=== PATIENT | male | born 1955 | race Two or more races ===

== ENCOUNTER 2024-06-02 16:12 | Inpatient (IN) | payer MEDICARE, MEDICAID, SELFPAY ==
[2024-06-02 16:37] VITALS: BP 151/87; PULSE 99; RESP 18; TEMP 37.2; O2SAT 95; BMI 30.2
--- NOTE | 2024-06-02 16:44 | XR_ITS ---
Examination: CT brain head without contrast. 2-D sagittal coronal reconstructions Date and time of exam:June 02, 2024, 1705 hours Comparison February 09, 2017 INDICATIONS: Onset headache today CTDI: vol (mGy):56.2 DLP: (mGycm):1182 Technique: Multiple CT axial sections of the brain have been obtained, 5 mm slice thickness. Contrast has not been administered. 2-D sagittal, coronal reconstructions have been obtained Low dose protocols were performed. One or more of the following dose reduction techniques were used; automated exposure control, adjustment of the mA and/or KV according to patient size, use of iterative reconstruction technique. Findings: No significant ventricular enlargement. 15 mm subtle low density in the left parietal lobe, axial image 20 Intra-axial or extra-axial hemorrhage density is not seen. No mass effect or midline shift Basal cisterns are not remarkable. Fourth ventricle is midline. Cranial vault intact. Right ethmoid sinusitis Impression: Negative for acute hemorrhage, mass effect or midline shift 15 mm low-density area in the left parietal lobe axial image 20, clinical correlation advised Brain MRI follow-up would best assess for acute infarct at this site, as clinically warranted
--- NOTE | 2024-06-02 16:44 | XR_ITS ---
Examination: CT cervical spine without contrast 2-D sagittal reconstructions 2-D coronal reconstructions 3-D reconstructions. Exam date and time:June 02, 2024 at 1705 hours INDICATIONS: Onset neck pain today CTDI:vol (mGy) 9.33 DLP: (mGycm) 220 Technique: Multiple 2 mm axial sections of the cervical spine have been obtained. The coronal and sagittal reconstructions have been obtained. 3-D reconstructions have been obtained. Low dose protocols were performed. One or more of the following dose reduction techniques were used; automated exposure control, adjustment of the mA and/or KV according to patient size, use of iterative reconstruction technique. Findings: Straightening normal cervical lordosis Cervical fusion C4-C6 with adequate alignment Advanced degenerative disc disease C3-C4, C6-C7 No cervical fracture Intact odontoid C3-C4 advanced bilateral neural foraminal stenosis C4-C5 advanced left neural foraminal stenosis C5-C6 advanced right neural foraminal stenosis C6-C7 no disc protrusion IMPRESSION: Advanced degenerative disc disease C3-C4, C6-C7 Significant bilateral neural foraminal stenosis as above MRI cervical spine, elective, follow-up would best assess full extent of acquired soft tissue spinal stenosis
--- NOTE | 2024-06-02 16:44 | EKG_ITS ---
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
--- NOTE | 2024-06-02 17:46 | PD.EDADULT ---
ED General RME/HPI General Chief complaint: Fall Stated complaint: FALLING SINCE YESTERDAY. Time Seen by Provider: 06/02/24 17:40 Arrival date/time: 06/02/24 16:12 RME / HPI RME / HPI narrative: 68-year-old male patient with significant history of mental health disorder, was seen by her mental health MD and was started on new medications. Since yesterday patient was noted to be having unstable gait, numbness to both side of the face, severity moderate. he has been falling a lot also. Patient denies any chest pain denies any headache denies any neck pain. Patient is ambulatory. Patient is not taking any blood thinner. Related Data Home Medications ?Medication ?Instructions ?Recorded ?Confirmed aripiprazole 30 mg tablet (Abilify) 30 mg PO QDAY #0 tabs 02/09/17 09/08/20 ibuprofen 800 mg tablet 800 mg PO Q8HR PRN PAIN #0 tabs 02/09/17 09/08/20 lorazepam 1 mg tablet 1 mg PO QDAY PRN ANXIETY #0 tabs 02/09/17 09/08/20 mirtazapine 30 mg tablet (Remeron) 30 mg PO HS #0 tabs 02/09/17 09/08/20 paroxetine HCl 20 mg tablet (Paxil) 20 mg PO QAM #0 tabs 02/09/17 09/08/20 risperidone 2 mg tablet (Risperdal) 2 mg PO BID #0 tabs 02/09/17 09/08/20 trazodone 100 mg tablet 100 mg PO HS 03/10/18 09/08/20 Previous Rx's ?Medication ?Instructions ?Recorded lorazepam 1 mg tablet (Ativan) 1 mg PO BID #2 tabs 12/21/18 lorazepam 1 mg tablet (Ativan) 1 mg PO BID PRN anxiety #20 tabs 09/08/20 cephalexin 500 mg capsule 500 mg PO Q8H #30 caps 01/26/21 Allergies Allergy/AdvReac Type Severity Reaction Status Date / Time No Known Allergies Allergy Verified 06/02/24 16:18 Review of Systems Review of Systems Narrative Review of Systems: Review of system reviewed and within normal limits except mentioned in HPI ED Exam Narrative Physical exam: VITAL SIGNS: Reviewed. GENERAL APPEARANCE: Alert and interactive, follows commands, no acute distress, HEAD AND FACE: Non-traumatic. ENT: PERRL, pink conjunctivitis, eyelid no trauma, Mucous membrane moist. NECK: Supple, nontender, no nuchal rigidity. CHEST: No tenderness, no crepitus, no paradoxical movement, no retractions. LUNGS: Clear, well ventilated, symmetric, no rales, no wheezing, no ronchi, no stridor, good breath sounds bilaterally. HEART: Regular rate, regular rhythm, no murmur, no gallops. ABDOMEN: Soft, positive bowel sounds, nondistended, no guarding, nontender, no rebound, no masses, RECTAL: Deferred. GENITAL: Deferred. NEUROLOGICAL: Gross motor function intact sensory function intact, Appropriate for age. MUSCULOSKELETAL: low back nontender, full range of motion. EXTREMITIES: Nontender, full range of motion. SKIN: Color pink, dry, no rash, no lacerations, no abrasions, no contusions. LYMPHATICS: Deferred. Course Quality Measures none Orders Category Date Time Status COVID-19 Screening Questionnaire NOW Care 06/02/24 19:54 Active Decision to Admit X1 Care 06/02/24 19:54 Active EKG (ED ONLY) *Do not use* NOW Care 06/02/24 16:44 Completed Consult to Neurology / Tele-Neurology Stat Cons 06/02/24 19:[address] cervical spine wo con Stat Exams 06/02/24 16:[address] head/brain wo con Stat Exams 06/02/24 16:44 Completed EKG (ED Only) Stat Exams 06/02/24 16:44 Draft Alcohol, Blood Medical Stat Lab 06/02/24 17:34 Completed B-Type Natriuretic Peptide Stat Lab 06/02/24 17:34 Completed CBC Stat Lab 06/02/24 17:34 Completed Comprehensive Metabolic Panel Stat Lab 06/02/24 17:34 Completed Drug Screen,Urine Stat Lab 06/02/24 16:44 Ordered Magnesium Stat Lab 06/02/24 17:34 Completed Partial Thromboplastin Time Stat Lab 06/02/24 17:34 Completed Prothrombin Time with INR Stat Lab 06/02/24 17:34 Completed Troponin I Stat Lab 06/02/24 17:34 Completed Urinalysis Stat Lab 06/02/24 16:44 Ordered Aspirin [Ecotrin] Med 06/02/24 19:51 Discontinued 81 mg PO X1 ONE Vital Signs Vital signs: Vital Signs Temperature 99 F 03/19/25 16:37 Pulse Rate 99 06/02/24 16:37 Respiratory Rate 18 06/02/24 16:37 Blood Pressure 151/87 H 06/02/24 16:37 Pulse Oximetry (%) 95 06/02/24 16:37 Oxygen Delivery Method Room Air 06/02/24 16:37 [facility] Patient data External records reviewed:: None Clinical information provided by:: patient and family Social determinants that could affect healthcare access:: none Patient has the following chronic illnesses:: Mental health issues How is presenting disease/condition affected by chronic disease/condition?: exacerbated by Evaluation data The following diagnostics were reviewed and interpreted by me:: lab results, radiology exam(s) and EKG tracing(s) Lab and/or radiology exams considered but not ordered:: None Interpretation Summary: See results in MDM Medications Medications considered but not ordered:: None Medication administrations:: Medication Administration History Discontinued Medications Aspirin (Aspirin Ec 81 Mg Tabec) 81 mg PO X1 ONE Stop: 06/02/24 19:52 Aspirin Consultations Consultation(s) initiated? (list below): No Diagnosis Differential Diagnosis ED Complaint MDM: Strokelike symptoms, unsteady gait, dizziness Most likely diagnosis given after review of the tests above:: Strokelike symptoms Admission Indicated Admission indicated?: indicated Explain why admission is indicated or not indicated:: For stroke workup Admission Request Was there a request for admission?: Yes Admission Attestation Admission request attestation: Discussed case with [Dr. Hou] from Hospitalist service regarding admission. Discussed patients ED course, exam findings, labs, and radiology results. The Hospitalist [agrees] to accept the patient for admission. Disposition Plan Disposition Plan: Admit Medical Decision Making [facility] Narrative [facility] Narrative: 68-year-old male patient with significant history of mental health disorder, was seen by her mental health MD and was started on new medications. Since yesterday patient was noted to be having unstable gait, numbness to both side of the face, severity moderate. he has been falling a lot also. Patient denies any chest pain denies any headache denies any neck pain. Patient is ambulatory. Patient is not taking any blood thinner. EKG shows sinus rhythm, ventricular rate of 79 bpm, no ST segment elevation depression noted. Laboratory workup came back unremarkable. Except for the CT scan of the head that showed Negative for acute hemorrhage, mass effect or midline shift 15 mm low-density area in the left parietal lobe axial image 20, clinical correlation advised Brain MRI follow-up would best assess for acute infarct at this site, as clinically warranted CT scan of cervical spine came back unremarkable. I spoke with Dr. Clayton, neurologist on-call, who examined the patient CT scan, and told me that patient is to be admitted for stroke workup. Patient will be given 81 mg of aspirin p.o. Differential Diagnosis Differential Diagnosis: Strokelike symptoms, unsteady gait, dizziness Lab Data 06/02/24 17:34 06/02/24 17:34 Labs: Lab Results 06/02/24 Range/Units 17:34 WBC 8.1 (3.8-10.6) Thou/mm3 RBC 4.82 (4.50-5.90) Miln/mm3 Hgb 14.6 (13.5-16.0) g/dL Hct 42.8 (41.0-53.0) % MCV 89 (80-100) fL MCH 30.3 (25.0-35.0) pg MCHC 34.1 (31.0-37.0) g/dl RDW Std Deviation 44.9 H (35.1-43.9) fL Plt Count 247 (140-440) Thou/mm3 Neut % (Auto) 51 (37-80) % Lymph % (Auto) 35 (10-50) % Garden % (Auto) 10 (0-12) % Eos % (Auto) 2 (0-10) % Baso % (Auto) 1 (0-2.5) % Neut # (Auto) 4.1 (1.8-7.7) Thou/mm3 Lymph # (Auto) 2.9 (1.0-4.8) Thou/mm3 Garden # (Auto) 0.8 (0.0-0.8) Thou/mm3 Eos # (Auto) 0.2 (0.0-0.5) Thou/mm3 Baso # (Auto) 0.1 (0.0-0.2) Thou/mm3 Immature Gran # (Auto) 0.06 H (0.00-0.00) Thou/mm3 Absolute Nucleated RBC 0.00 (0.00-0.00) Thou/mm3 Immature Gran % 1 H (0-0) % Nucleated RBC % 0 (0) /100 WBC PT 10.6 (9.0-12.2) Seconds INR 1.0 (0.9-1.3) APTT 26.8 (22.0-36.0) Seconds Sodium 139 (136-145) mMol/L Potassium 3.8 (3.4-5.1) mMol/L Chloride 101 (98-107) mMol/L Carbon Dioxide 27.0 (20.0-31.0) mMol/L Anion Gap 11 (7-16) BUN 16 (9-23) mg/dL Creatinine 0.8 (0.6-1.3) mg/dL Estim Creat Clear Calc 105.7 (>60) mL/min eGFR > 60 (60 - ) See Note BUN/Creatinine Ratio 20 (12-20) Ratio Glucose 122 H (74-106) mg/dL Calculated Osmolality 279 (275-295) Calcium 10.1 (8.3-10.6) mg/dL Corrected Calcium 10.1 (8.5-10.1) mg/dL Magnesium 1.9 (1.6-2.6) mg/dL Total Bilirubin 0.2 L (0.3-1.2) mg/dL AST 17 (0-34) U/L ALT 19 (10-49) U/L Alkaline Phosphatase 72 (46-116) U/L Troponin I < 0.020 (0.0-0.045) ng/mL B-Natriuretic Peptide < 20 (0-100) pg/mL Total Protein 7.4 (5.7-8.2) gm/dL Albumin 4.7 (3.4-4.8) gm/dL Globulin 2.7 (2.3-3.5) gm/dL Albumin/Globulin Ratio 1.7 (1.2-2.2) Ethyl Alcohol < 3.0 (0-10.0) mg/dL Discharge Plan Plan Patient Disposition: Admit Acute Care w/in Hospital Prescriptions/Referrals Prescriptions/Med Rec: No Action ibuprofen 800 MG tablet 800 mg PO Q8HR PRN (Reason: PAIN) Qty: 0 risperidone [Risperdal] 2 MG tablet 2 mg PO BID Qty: 0 paroxetine HCl [Paxil] 20 MG tablet 20 mg PO QAM Qty: 0 mirtazapine [Remeron] 30 MG tablet 30 mg PO HS Qty: 0 lorazepam 1 MG tablet 1 mg PO QDAY PRN (Reason: ANXIETY) Qty: 0 aripiprazole [Abilify] 30 MG tablet 30 mg PO QDAY Qty: 0 trazodone 100 mg Tablet 100 mg PO HS lorazepam [Ativan] 1 mg tablet 1 mg PO BID PRN (Reason: anxiety) Qty: 20 0RF lorazepam [Ativan] 1 mg tablet 1 mg PO BID Qty: 2 0RF cephalexin 500 mg capsule 500 mg PO Q8H Qty: 30 0RF Referrals: No Primary/Family,Physician [Primary Care Provider] - In 1 week Problem List Clinical Impression: Stroke-like symptom Patient/Caregiver Discharge Instructions Print Language: [place] Stand Alone Forms: [employer] Award Info., Patient Portal Info Letter
[2024-06-02 18:18] LABS: Basophils # (Auto) 0.1 Thou/mm3 (0.0-0.2); Basophils % (Auto) 1 % (0-2.5); Eosinophils # (Auto) 0.2 Thou/mm3 (0.0-0.5); Eosinophils % (Auto) 2 % (0-10); Hematocrit 42.8 % (41.0-53.0); Hemoglobin 14.6 g/dL (13.5-16.0); Immature Granulocytes % (Auto) 1 % (0-0); Immature Granulocytes Auto 0.06 Thou/mm3 (0.00-0.00); Lymphocytes # (Auto) 2.9 Thou/mm3 (1.0-4.8); Lymphocytes % (Auto) 35 % (10-50); Mean Corpuscular HGB Conc 34.1 g/dl (31.0-37.0); Mean Corpuscular Hemoglobin 30.3 pg (25.0-35.0); Mean Corpuscular Volume 89 fL (80-100); Monocytes # (Auto) 0.8 Thou/mm3 (0.0-0.8); Monocytes % (Auto) 10 % (0-12); Neutrophils # (Auto) 4.1 Thou/mm3 (1.8-7.7); Neutrophils % (Auto) 51 % (37-80); Nucleated Red Blood Cell % 0 /100 WBC (0); Platelet Count 247 Thou/mm3 (140-440); RDW Standard Deviation 44.9 fL (35.1-43.9); Red Blood Count 4.82 Miln/mm3 (4.50-5.90); White Blood Count 8.1 Thou/mm3 (3.8-10.6)
[2024-06-02 18:36] LABS: B-Type Natriuretic Peptide < 20 pg/mL (0-100)
[2024-06-02 18:43] LABS: Partial Thromboplastin Time 26.8 Seconds (22.0-36.0); Prothrombin Time 10.6 Seconds (9.0-12.2)
[2024-06-02 18:49] LABS: Alanine Aminotransferase 19 U/L (10-49); Albumin, Serum 4.7 gm/dL (3.4-4.8); Albumin/Globulin Ratio 1.7 (1.2-2.2); Alcohol, Blood Medical < 3.0 mg/dL (0-10.0); Alkaline Phosphatase 72 U/L (46-116); Anion Gap 11 (7-16); Aspartate Amino Transferase 17 U/L (0-34); BUN/Creatinine Ratio 20 Ratio (12-20); Bilirubin,Total 0.2 mg/dL (0.3-1.2); Blood Urea Nitrogen 16 mg/dL (9-23); Calcium 10.1 mg/dL (8.3-10.6); Calcium (Corrected) 10.1 mg/dL (8.5-10.1); Chloride 101 mMol/L (98-107); Creatinine (Component) 0.8 mg/dL (0.6-1.3); Estimated Creatinine Clearance 105.7 mL/min (>60); Globulin 2.7 gm/dL (2.3-3.5); Glucose 122 mg/dL (74-106); Osmolality,Calculated 279 (275-295); Potassium 3.8 mMol/L (3.4-5.1); Sodium 139 mMol/L (136-145); Total Protein 7.4 gm/dL (5.7-8.2); Troponin I < 0.020 ng/mL (0.0-0.045); eGFR > 60 See Note
[2024-06-02 19:28] LABS: Magnesium 1.9 mg/dL (1.6-2.6)
[2024-06-02 21:06] VITALS: BP 125/82; PULSE 92; RESP 18; TEMP 36.6; O2SAT 96
[2024-06-02 22:12] VITALS: BP 136/72; PULSE 86; RESP 20; TEMP 36.6; O2SAT 95
[2024-06-02] MEDS: ASPIRIN EC 81 MG TABEC PO (22:16)
--- NOTE | 2024-06-02 23:57 | ESHP_ITS ---
<Statement entered by Nicolas Chong MD - 06/03/24 05:54> 68-year-old male with multiple comorbidities including type 2 diabetes mellitus, hypertension, bipolar disorder, Parkinson who presented to the ER with generalized weakness. Patient reports that he has been having generalized weakness that has been going on for the past 2 to 3 days and states that he is also started noticing unsteady gait and slurred speech. In the ER, neurologist was consulted who recommended admitting the patient for a stroke workup. As of now, plan to start patient on aspirin, Lipitor and obtain MRI and echocardiogram. Of note, teleneurology was not consulted given that patient's symptoms started 3 days ago and thus in-house neurology will evaluate the patient.I reviewed above note and agree with findings and plans. I have also personally examined the patient with medicine team and went over assessment and plan with medical team including international freight forwarder and resident physician. Documentation for date of: 06/02/24 HPI History of Present Illness Chief complaint: Acute generalized weakness and slurred speech History of present illness: HPI:A 68-year-old male patient reportedly with past medical history of bipolar disorder, hypertension, Parkinson's, diabetes came to the ED due to history of generalized weakness and unsteadiness for the past 3 days. Patient reported that 3 weeks ago he was struggling with unsteadiness. 3 days ago he went to his primary care provider which he did adjust some of his psych medications that he is taking. After he started to use the new prescription for his psych medication the patient started to feel facial numbness, slurred speech, and generalized weakness. Patient also state worsening of his unsteadiness. Patient denied any facial droop, diplopia, tinnitus, and denied any history of nausea or vomiting. Patient reported that he has been on these medications for more than 5 years and have been tolerating well. Patient denied any trauma or any history of strokes. Denied any history of heart problems. And denied using any blood thinners At the ED patient was noticed to have blood pressure of 151/87, pulse rate of 99, however other vitals within normal limits. His CBC, coagulation panel, CMP, all are within normal limits. Urinalysis was also negative and his urine drug screen was negative. The ED provider ordered for the patient cervical CT scan which showed degenerative disc disease affecting C3-C4 and C6-C7 with significant bilateral neural foraminal stenosis. Brain CT scan was only significant for 50 mm of low-density area in the left parietal lobe. At the ED the neurologist Dr. Clayton was consulted and she recommended to admit the patient for MRI and further stroke workup if needed as per the ED note. Home medications: Amlodipine, benzonatate, cetirizine, dapagliflozin?metformin, hydroxyzine, ibuprofen, meloxicam, mirtazapine, paroxetine, quetiapine, risperidone, trazodone(on hold), lorazepam(on hold) PMH: As above Social hx: Alcohol: Last drink was 35 years ago Tobacco: Smoked for 40 years stopped smoking 5 years ago. Illicit drugs: Remote history of cocaine abuse 35 years ago. Allergies: No known allergies Review of Systems Review of Systems Systems Reviewed: All systems reviewed, normal except as documented Exam Vital Signs Temp Pulse Resp BP Pulse Ox O2 Del Method 97.9 F 86 20 136/72 H 95 Room Air 06/02/24 22:12 06/02/24 22:12 06/02/24 22:12 06/02/24 22:12 06/02/24 22:12 06/02/24 22:12 Narrative Exam GEN: AOx3, Prydeinig speaker, slurred speech was noted, no facial asymmetry, able to speak full sentences HEENT: NC/AC,oral mucosa dry, neck supple CVS: RRR, S1-S2 present, no murmurs appreciated RESP: CTAB GI: soft,non distended, non tender, NBS MSK: able to move all 4 limbs, no lower extremity edema SKIN: warm and dry PROJECT CONTROL ANALYST: CN II-XII and Sensation grossly intact. Results: Labs 06/02/24 17:34 06/02/24 17:34 Labs: Short CBC 06/02/24 Range/Units 17:34 WBC 8.1 (3.8-10.6) Thou/mm3 Hgb 14.6 (13.5-16.0) g/dL Hct 42.8 (41.0-53.0) % Plt Count 247 (140-440) Thou/mm3 BMP 06/02/24 17:34 Sodium 139 Potassium 3.8 Chloride 101 Carbon Dioxide 27.0 BUN 16 Creatinine 0.8 Glucose 122 H Calcium 10.1 Cardiac Enzymes 06/02/24 Range/Units 17:34 Troponin I < 0.020 (0.0-0.045) ng/mL Liver Function 06/02/24 Range/Units 17:34 Total Bilirubin 0.2 L (0.3-1.2) mg/dL AST 17 (0-34) U/L ALT 19 (10-49) U/L Alkaline Phosphatase 72 (46-116) U/L Albumin 4.7 (3.4-4.8) gm/dL Quality Measures Quality Measures none Advance care planning discussed with:: patient Medications Home Medications and Allergies Home Medications ?Medication ?Instructions ?Recorded ?Confirmed ?Type ibuprofen 800 mg tablet 800 mg PO Q8HR PRN PAIN #0 t abs 02/09/17 06/02/24 History lorazepam 1 mg tablet 1 mg PO QDAY PRN ANXIETY #0 tabs 02/09/17 06/02/24 History Held on 06/02/24. Instructions: Doctor's Order mirtazapine 30 mg tablet (Remeron) 30 mg PO HS #0 tabs 02/09/17 06/02/24 History paroxetine HCl 20 mg tablet (Paxil) 20 mg PO QAM #0 ta bs 02/09/17 06/02/24 History risperidone 2 mg tablet (Risperdal) 6 mg PO .QHS #0 ta bs 02/09/17 06/02/24 History trazodone 100 mg tablet 100 mg PO HS 03/10/18 History Held on 06/02/24. Instructions: Doctor's Order amlodipine 5 mg tablet 5 mg PO .QHS 06/02/24 History benztropine 1 mg tablet 1 mg PO BID 06/02/24 5 History cetirizine 10 mg tablet 10 mg PO QHSPRN 06/02/24 History dapagliflozin propaned 10 1 tab PO QDAY 06/02/2406/02 History mg-metformin ER 1,000 mg tablet,ext rel 24hr (Xigduo XR) hydroxyzine HCl 25 mg tablet 50 mg PO BID 06/02/24 History meloxicam 15 mg tablet 15 mg PO QDAY 06/02/2406/02 History quetiapine 25 mg tablet 25 mg PO .QHS 06/02/2406/02 History risperidone 2 mg tablet (Risperdal) 2 mg PO QAM 06/02/24 History Allergies Allergy/AdvReac Type Severity Reaction Status Date / Time No Known Allergies Allergy Verified 06/02/24 16:18 Visit Medications Discontinued Medications Aspirin (Aspirin Ec 81 Mg Tabec) 81 mg PO X1 ONE Stop: 06/02/24 19:52 Last Admin: 06/02/24 22:16 Dose: 81 mg Assessment & Plan Plan Summary:A 68-year-old male patient reportedly with past medical history of bipolar disorder, hypertension, Parkinson's, diabetes came to the ED due to history of generalized weakness and unsteadiness for the past 3 days. Patient reported that 3 weeks ago he was struggling with unsteadiness. Patient was admitted for stroke rule out. Assessment and plan #Stroke rule out #Generalized weakness and slurred speech most likely medication side effect #History of bipolar disorder #History of Parkinson's Patient reported recent changes of his psych medications by his provider. After he started taking these medications he mentions that his symptoms started. He mentions that he has unsteadiness that is on and off for the past 5 years in which his provider is to adjust his medication to mitigate the side effect. Because the patient noticed to have slurred speech and also generalized weakness and unsteadiness. The neurologist Dr Clayton recommended to admit the patient for stroke rule out and for close monitoring. Plan ? Admit patient to telemetry ? Continue aspirin 81 mg daily ? Physical therapy evaluation ? Atorvastatin 40 mg p.o. daily ? MRI stroke protocol ? Echocardiogram with bubble study ? Neurochecks every 4 hours ? Seizures precautions ? N.p.o. until the patient passes bedside swallow eval ?Hold all home psych medications until we get neurologist recommendations #History of hypertension Resume home medication amlodipine #History of diabetes mellitus Plan ? Put patient on insulin sliding scale ? A1c level ? Hypoglycemia protocol #Questionable history of Perkinson's disease There was no official documentation of his Parkinson's. Plan ? Follow-up with neurology recommendations Hospital Maintenance: FEN: N.p.o. after patient passes bedside swallow eval DVT ppx: Subcu heparin GI ppx: Protonix IV lines: PIV Ibarra: No Code status: Full code Dispo: Telemetry - Patient's plan and care discussed with my attending, Dr. Castillo Jara, MD Internal Medicine PGY-2 #
[2024-06-03] VITALS (7 sets, daily range): BP systolic 130–166; BP diastolic 80–98; PULSE 72–94; RESP 15–18; TEMP 36.3–36.9; O2SAT 94–97; BMI 29.1
--- NOTE | 2024-06-03 | XR_ITS ---
Examinations: MRI Brain without intravenous contrast. MRA brain without intravenous contrast. MRA carotids without intravenous contrast 3-D vascular reconstructions Date and time of exam: June 03, 2024 1925 hours INDICATIONS: Slurred speech and ataxia beginning 3 days ago Technique: Multiple axial and sagittal images of the brain have been obtained MRA brain carotid images without contrast obtained, including 3-D postprocessing, vascular maximum intensity projection images Findings: Sellaturc[place] is not enlarged. The optic chiasm and infundibular stalk are not remarkable. Prepontine and interpeduncular cisterns are not enlarged. No localized enlargement of the medulla or radha. Fourth ventricle and cerebellar tonsils normal in position. Subacute hemorrhage is not seen. Fourth ventricle is midline. Mass in the cerebellopontine angle region is not evident. 7th and 8th nerve complexes exhibits symmetry. Globes are symmetrical with no retro-orbital mass. Increased white matter signal significant Diffusion-weighted images demonstrate 10 mm focus restricted diffusion right basal ganglia Mass-effect upon the ventricular system is not identified. MRA carotid images degraded by patient motion. 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
[2024-06-03 01:23] LABS: Collection Type, Urine Clean Catch; RBC,Urine 0 /hpf (0-3); Squamous Epithelial Cell,Urine 0 /hpf (0-5); WBC,Urine 0 /hpf (0-5)
[2024-06-03] MEDS: RINGERS LACTATED 1000 ML 1,000 ML 75 ML IV (01:26)
[2024-06-03 01:40] LABS: Bilirubin,Urine Negative (Negative); Blood,Urine Negative (Negative); Clarity,Urine Clear (Clear/Hazy); Color,Urine Colorless (Lt Yel-Yel); Glucose, Urine 4+ (Negative); Ketones,Urine Negative (Negative); Leukocyte Esterase,Urine Negative (Negative); Nitrite,Urine Negative (Negative); PH,Urine 7.5 (5.0-7.0); Protein,Urine Negative (Neg - Trace); Specific Gravity,Urine 1.016 (1.001-1.035); Urobilinogen,Urine Negative mg/dL (0.0-1.0)
[2024-06-03 01:46] LABS: Amphetamine/Methamp Scrn,U Negative (Negative); Barbiturate Screen,Urine Negative (Negative); Benzodiazepines Screen,Urine Negative (Negative); Benzoylecgonine Screen, Ur Negative (Negative); Fentanyl Screen,Urine Negative (Negative); Opiate Screen,Urine Negative (Negative); THC Screen,Urine Negative (Negative)
[2024-06-03 05:26] LABS: Basophils % (Auto) 0 % (0-2.5); Eosinophils # (Auto) 0.2 Thou/mm3 (0.0-0.5); Eosinophils % (Auto) 2 % (0-10); Hematocrit 42.1 % (41.0-53.0); Hemoglobin 14.3 g/dL (13.5-16.0); Immature Granulocytes % (Auto) 1 % (0-0); Immature Granulocytes Auto 0.05 Thou/mm3 (0.00-0.00); Lymphocytes # (Auto) 3.2 Thou/mm3 (1.0-4.8); Lymphocytes % (Auto) 35 % (10-50); Mean Corpuscular Hemoglobin 30.2 pg (25.0-35.0); Mean Corpuscular Volume 89 fL (80-100); Monocytes # (Auto) 0.9 Thou/mm3 (0.0-0.8); Monocytes % (Auto) 10 % (0-12); Neutrophils # (Auto) 4.8 Thou/mm3 (1.8-7.7); Neutrophils % (Auto) 52 % (37-80); Nucleated Red Blood Cell % 0 /100 WBC (0); Platelet Count 241 Thou/mm3 (140-440); RDW Standard Deviation 45.2 fL (35.1-43.9); Red Blood Count 4.73 Miln/mm3 (4.50-5.90); White Blood Count 9.2 Thou/mm3 (3.8-10.6)
[2024-06-03] MEDS: HEPARIN SOD INJ 5000 UNIT/ML VIAL SC ×3 (05:34→21:04)
[2024-06-03 06:04] LABS: Alanine Aminotransferase 16 U/L (10-49); Albumin, Serum 4.5 gm/dL (3.4-4.8); Albumin/Globulin Ratio 1.9 (1.2-2.2); Alkaline Phosphatase 69 U/L (46-116); Anion Gap 11 (7-16); Aspartate Amino Transferase 14 U/L (0-34); BUN/Creatinine Ratio 14 Ratio (12-20); Bilirubin,Total 0.5 mg/dL (0.3-1.2); Blood Urea Nitrogen 13 mg/dL (9-23); Calcium 9.5 mg/dL (8.3-10.6); Calcium (Corrected) 9.5 mg/dL (8.5-10.1); Chloride 100 mMol/L (98-107); Creatinine (Component) 0.9 mg/dL (0.6-1.3); Estimated Creatinine Clearance 92.3 mL/min (>60); Globulin 2.4 gm/dL (2.3-3.5); Glucose 140 mg/dL (74-106); Magnesium 2.1 mg/dL (1.6-2.6); Osmolality,Calculated 279 (275-295); Sodium 139 mMol/L (136-145); Thyroid Stimulating Hormone 1.79 uIU/mL (0.55-4.78); Total Protein 6.9 gm/dL (5.7-8.2); eGFR > 60 See Note
[2024-06-03 07:55] LABS: Glucose Estimated Average 146 mg/dL (80-131); Hemoglobin A1C 6.7 % Hgb (4.8-6.0)
[2024-06-03 09:01] LABS: Cardiac Risk Estimate 3.4 RATIO (4.0-6.7); Cholesterol 193 mg/dL (132-200); HDL Cholesterol 57 mg/dL (40-60); LDL Cholesterol,Calculated 111 mg/dL (0-130); Triglycerides 124 mg/dL (30-150)
[2024-06-03] MEDS: PANTOPRAZOLE INJ 40 MG VIAL IVP (09:12)
[2024-06-03] MEDS: ASPIRIN EC 81 MG TABEC PO (09:12)
--- NOTE | 2024-06-03 10:00 | PC.SS ---
Patient Ag Caraballo is a 68 Year old male admitted for Stroke R/O. SS met with patient at bedside to review Demographic information. Patient reports he lives with a friend, who he is renting a room from. Patient reports his daughter, Margot Ortiz is his surrogate decision maker [phone]. Patient's pharmacy of choice is [place] [facility]. Patient reports he goes to a clinic in [place] however does not know PCP name. Patient does not utilize any source of DME to assist with ambulation. At time of discharge the patient wishes to return home, family will provide transportation. Next of Kin: DaughterMargot Discharge plan: Home
--- NOTE | 2024-06-03 12:29 | ESPR_ITS ---
<Statement entered by Adeel Kim MD - 06/03/24 18:42> Patient was seen and examined at the bedside. Patient is admitted overnight for stroke workup. Patient came with generalized weakness and slurred speech. Symptoms were present from last 3 days therefore teleneuro was consulted. Currently we are waiting on MRI brain and echo. Neurology recommended to continue aspirin and statin. Head CT was significant for 15 mm low-density area in the left parietal lobe. Will follow-up with neurology recommendations and MRI brain without contrast. All labs and orders were reviewed. I saw and examined the patient, and I agree with current management stated by Dr Jarrod MD,PGY1. Plan of care was discussed with the attending physician and resident physician. Disclaimer: Despite multiple revisions, due to the dictation software being used, the document bellow may not be free of grammatical errors including phonetic/typographic errors. However, this does not deter from our commitment to providing health care in the patient's best interest in mind. Dr. Judy MD, PGY 2 Documentation for date of: 06/03/24 Subjective Subjective Interval history: Seen and examined at bedside. Does not have any complaints at this time, asking when he can go home, and symptoms resolved. Medications brought from home were reviewed and reconciled and continued those deemed important given current clinical setting. Pending MRI and echo and will follow-up on neurology recommendations. Exam Vital Signs Temp Pulse Resp BP Pulse Ox O2 Del Method 97.3 F 78 16 156/89 H 95 Room Air 06/03/24 08:00 06/03/24 08:00 06/03/24 08:00 06/03/24 08:00 06/03/24 08:00 06/03/24 08:00 Narrative Exam General: AOx3, no acute distress, able to speak full sentences HEENT: NC/AT, mucous membranes moist, bilateral sclera anicteric Cardiovascular: regular rate and rhythm, S1/S2 present, no murmurs appreciated Pulmonary: clear to auscultation bilaterally, no rales/rhonchi/wheezes Abdominal: soft, non-tender, non-distended, no rebound/guarding, normal bowel sounds present Musculoskeletal: normal ROM, no peripheral edema Skin: warm and dry, intact, no rashes Neuro: CN II-XII intact, no focal deficits Objective Labs 06/04/24 05:09 06/04/24 05:09 Labs: Laboratory Results - last 24 hr 06/02/24 06/03/24 06/03/24 17:34 01:10 04:52 WBC 8.1 9.2 RBC 4.82 4.73 Hgb 14.6 14.3 Hct 42.8 42.1 MCV 89 89 MCH 30.3 30.2 MCHC 34.1 34.0 RDW Std Deviation 44.9 H 45.2 H Plt Count 247 241 Neut % (Auto) 51 52 Lymph % (Auto) 35 35 [place] % (Auto) 10 10 Eos % (Auto) 2 2 Baso % (Auto) 1 0 Neut # (Auto) 4.1 4.8 Lymph # (Auto) 2.9 3.2 [place] # (Auto) 0.8 0.9 H Eos # (Auto) 0.2 0.2 Baso # (Auto) 0.1 0.0 Immature Gran # (Auto) 0.06 H 0.05 H Absolute Nucleated RBC 0.00 0.00 Immature Gran % 1 H 1 H Nucleated RBC % 0 0 PT 10.6 INR 1.0 APTT 26.8 Sodium 139 139 Potassium 3.8 4.0 Chloride 101 100 Carbon Dioxide 27.0 28.0 Anion Gap 11 11 BUN 16 13 Creatinine 0.8 0.9 Estim Creat Clear Calc 105.7 92.3 eGFR > 60 > 60 BUN/Creatinine Ratio 20 14 Glucose [address] Glu mg/dL 146 H Hemoglobin A1c 6.7 H Calculated Osmolality 279 279 Calcium 10.1 9.5 Corrected Calcium 10.1 9.5 Magnesium 1.9 2.1 Total Bilirubin 0.2 L 0.5 AST 17 14 ALT 19 16 Alkaline Phosphatase 72 69 Troponin I < 0.020 B-Natriuretic Peptide < 20 Total Protein 7.4 6.9 Albumin 4.7 4.5 Globulin 2.7 2.4 Albumin/Globulin Ratio 1.7 1.9 Triglycerides 124 Cholesterol 193 LDL Cholesterol, Calc 111 HDL Cholesterol 57 Cholesterol/HDL Ratio 3.4 L TSH 1.79 Ur Collection Type Clean Catch Urine Color Colorless A Urine Clarity Clear Urine pH 7.5 H Ur Specific [place] 1.016 Urine Protein Negative Urine Glucose (UA) 4+ A Urine Ketones Negative Urine Blood Negative Urine Nitrite Negative Urine Bilirubin Negative Urine Urobilinogen (Auto) Negative Ur Leukocyte Esterase Negative Urine RBC 0 Urine WBC 0 Ur Squamous Epith Cells 0 Urine Bacteria None Urine Opiates Screen Negative Urine Fentanyl Screen Negative Ur Barbiturates Screen Negative U Amphetamin/Meth Scrn Negative U Benzodiazepines Scrn Negative U Cocaine Metab Screen Negative U Marijuana (THC) Screen Negative Ethyl Alcohol < 3.0 Quality Measures Quality Measures none Advance care planning discussed with:: other Assessment & Plan Assessment Current Active Medications: Generic Name Dose Route Start Last Admin Trade Name Freq PRN Reason Stop Dose Admin Acetaminophen 650 mg 06/03/24 00:20 Acetaminophen 325 Mg Tablet PO 07/03/24 00:19 Q6H PRN Fever >101.5 Aspirin 81 mg 06/03/24 09:00 06/03/24 09:12 Aspirin Ec 81 Mg Tabec PO 07/03/24 08:59 81 mg QDAY JENNIFER Administration Atorvastatin Calcium 40 mg 06/03/24 21:00 Atorvastatin Calcium 20 Mg Tablet PO 07/03/24 20:59 HS JENNIFER Bisacodyl 10 mg 06/03/24 00:20 Bisacodyl 5 Mg Tabec PO 07/03/24 00:19 QDAY PRN CONSTIPATION Protocol Dextrose 25 ml 06/03/24 00:28 Dextrose 50%-Water Inj 50 Ml Syringe IV 07/03/24 00:27 Q15MIN PRN BG 50-70 responsive npo pt Dextrose 50 ml 06/03/24 00:28 Dextrose 50%-Water Inj 50 Ml Syringe IV 07/03/24 00:27 Q15MIN PRN BG <50 OR BG <70 & pt unresponsive Glucagon 1 mg 06/03/24 00:28 Glucagon Inj 1 Mg Vial IM Q15MIN PRN BG <70, and no IV access Heparin Sodium (Porcine) 5,000 unit 06/03/24 06:00 06/03/24 05:34 Heparin Sod Inj 5000 Unit/Ml Vial SC 06/17/24 05:59 5,000 unit Q8HR JENNIFER Administration Hydralazine HCl 10 mg 06/03/24 00:26 Hydralazine Inj 20 Mg/Ml Vial IV 07/03/24 00:25 Q2H PRN SBP >220mmHg Lactated Ringer's 1,000 mls @ 75 mls/hr 06/03/24 00:30 06/03/24 01:26 Lactated Ringers IV 06/03/24 13:49 75 mls/hr .[id number] JENNIFER Administration Insulin Human Lispro 0 unit 06/03/24 07:30 06/03/24 09:16 Insulin Lispro (Admelog) 1 Unit/0.01 Ml Unit SC 07/03/24 07:29 Not Given AC [facility] Protocol Ondansetron HCl 4 mg 06/03/24 00:20 Ondansetron Inj 2 Mg/Ml Inj 2 Ml IV 07/03/24 00:19 Q6H PRN NAUSEA OR VOMITING Protocol Oxycodone/Acetaminophen 1 tab 06/03/24 00:20 Oxycodone/Apap 5/325 Tablet PO 06/08/24 00:19 Q6H PRN PAIN SCALE 4-6 (Moderate Pantoprazole Sodium 40 mg 06/03/24 09:00 06/03/24 09:12 Pantoprazole Inj 40 Mg Vial IVP 07/03/24 08:59 40 mg QDAY JENNIFER Administration Plan Ag Lawrence is an 68-year-old male with history of bipolar disorder, hypertension, Parkinson's, and type 2 diabetes mellitus who was admitted for stroke rule out. #Stroke rule out #Generalized weakness, slurred speech, facial numbness Presented with generalized weakness, unsteady gait, facial numbness, and slurred speech after changing psych medications [address] head showed 15 mm low-density area in left parietal lobe. ? Neurology consulted, appreciate recommendations ? Aspirin 81 mg daily ? Atorvastatin 40 mg p.o. at bedtime ? Follow-up MRI ? Follow-up echo ? Past swallow evaluation so diet started #History of bipolar disorder Given that patient is on multiple psychiatric medications, with some being in the same general class (risperidone and quetiapine), will only start a select few at this time. ? Quetiapine 25 mg PO HS ? Mirtazapine 30 mg PO HS #History of Parkinson's ? Neurology following, appreciate recommendations #History of hypertension Home amlodipine 5 mg p.o. at bedtime ? Will hold at this time given BP at goal #Type 2 diabetes mellitus ? SSI ? Hypoglycemia protocol in place Hospital management: Disposition: pending MRI and echo and neuro recs Fluids: none Diet: cardiac Lines: PIV DVT prophylaxis: heparin SC GI prophylaxis: pantoprazole 40 mg IV daily CODE STATUS: full code ----- Plan discussed with attending physician Dr. Persaud and senior resident physician Dr. Judy Garay MD PGY-1 Internal Medicine Attending Provider Attestation/Addendum I have discussed and was present for the essential components of the history, physical examination, diagnosis, and treatment plan with the resident. I agree with the patient's care as documented by the resident and amended herein by me. Luisito Persaud DO. Although this document has been carefully reviewed, there may still be some phonetic and other typographical errors. These errors are purely grammatical due to imperfections in the software program and should not be construed in any way to compromise the substance of the patient's medical care during this visit.
--- NOTE | 2024-06-03 12:43 | PC.SS ---
Walkers The diagnosis creates mobility limitation that significantly impairs ability to participate in the patients activities of daily living either in their entirety, or in a reasonable time frame. Also the patient is able to safely use the walker and the patient?s mobility is sufficiently resolved with the use of the walker and cane has been ruled out.
--- NOTE | 2024-06-03 13:11 | PC.SS ---
Addendum entered by Zoe Zimmer 06/03/24 13:32: MERCEDES follow up note; SS sent out patient referral to [facility]. Fax sent out at [phone]. Original Note: MERCEDES submitted FWW inquiry through [employer]. [facility] will deliver walker at bedside.
[2024-06-03] MEDS: LORazepam 2 MG/ML VIAL IVP (19:14)
[2024-06-03] MEDS: MIRTAZAPINE 15 MG TABLET 30 MG PO (21:04)
[2024-06-03] MEDS: ATORVASTATIN CALCIUM 20 MG TABLET 40 MG PO (21:04)
[2024-06-03] MEDS: QUEtiapine FUMARATE 25 MG TABLET PO (21:04)
--- NOTE | 2024-06-03 21:18 | ESPR_ITS ---
Documentation for date of: 06/03/24 Subjective Subjective Interval history: Patient was seen in telemetry today at the bedside, no complaints reported. Waiting for MRI Exam - Neurology Vital Signs Temp Pulse Resp BP Pulse Ox O2 Del Method 98.4 F 78 17 130/80 97 Room Air 06/03/24 20:00 06/03/24 20:00 06/03/24 20:00 06/03/24 20:00 06/03/24 20:00 06/03/24 20:00 Narrative Exam GENERAL APPEARANCE: Well hydrated, well-nourished in no acute distress. HEENT: Normocephalic, atraumatic, extraocular movements intact. Pupils: Equal reacting to light and accommodation NECK: Supple, no JVD or bruits. CARDIOVASULAR: Heart: S1, S2 heard, regular without S3-S4 or murmur no rubs or gallops. LUNGS/CHEST: Clear to auscultation bilaterally. No rails, rhonchi, or wheezing. Normal inspection. ABDOMEN: Soft, nontender, with normal bowel sounds. No pulsatile masses. No rebound, rigidity, or guarding. Normal inspection and palpation. EXTREMITIES: Normal inspection and palpation. No edema, clubbing or cyanosis. SKIN: Warm and dry without rashes. Normal inspection. MUSCULOSKELETAL: No cervical, thoracic, lumbar or midline bony tenderness. Normal inspection. NEURO: Alert, awake and oriented x3. Cranial nerves: II through XII grossly intact. Speech and language: Normal with no dysarthria or dysphasia. Motor system: Tone and bulk: Normal: Strength: 5 out of 5 in all 4 extremities; No pronator drift noted. Deep tendon reflexes: 2+ bilaterally symmetrical. Plantar reflex: Downgoing bilaterally. Sensory system: Intact to all modalities of sensation bilaterally. Coordination: Intact to vfmlum-zdmd-rybep and yikn-vzro-jdby test bilaterally. No ataxia, no dysmetria, or dysdiadochokinesia noted. No intention tremors noted. Gait: Somewhat ataxic. No signs of meningeal irritation noted. PSYCHIATRIC: Normal mood and affect. Objective Labs 06/03/24 04:52 06/03/24 04:52 Labs: Laboratory Results - last 24 hr 06/03/24 06/03/24 01:10 04:52 WBC 9.2 RBC 4.73 Hgb 14.3 Hct 42.1 MCV 89 MCH 30.2 MCHC 34.0 RDW Std Deviation 45.2 H Plt Count 241 Neut % (Auto) 52 Lymph % (Auto) 35 [place] % (Auto) 10 Eos % (Auto) 2 Baso % (Auto) 0 Neut # (Auto) 4.8 Lymph # (Auto) 3.2 [place] # (Auto) 0.9 H Eos # (Auto) 0.2 Baso # (Auto) 0.0 Immature Gran # (Auto) 0.05 H Absolute Nucleated RBC 0.00 Immature Gran % 1 H Nucleated RBC % 0 Sodium 139 Potassium 4.0 Chloride 100 Carbon Dioxide 28.0 Anion Gap 11 BUN 13 Creatinine 0.9 Estim Creat Clear Calc 92.3 eGFR > 60 BUN/Creatinine Ratio 14 [address]ucose [address] Glu mg/dL 146 H Hemoglobin A1c 6.7 H Calculated Osmolality 279 Calcium 9.5 Corrected Calcium 9.5 Magnesium 2.1 Total Bilirubin 0.5 AST 14 ALT 16 Alkaline Phosphatase 69 Total Protein 6.9 Albumin 4.5 Globulin 2.4 Albumin/Globulin Ratio 1.9 Triglycerides 124 Cholesterol 193 LDL Cholesterol, Calc 111 HDL Cholesterol 57 Cholesterol/HDL Ratio 3.4 L TSH 1.79 Ur Collection Type Clean Catch Urine Color Colorless A Urine Clarity Clear Urine pH 7.5 H Ur Specific [place] 1.016 Urine Protein Negative Urine Glucose (UA) 4+ A Urine Ketones Negative Urine Blood Negative Urine Nitrite Negative Urine Bilirubin Negative Urine Urobilinogen (Auto) Negative Ur Leukocyte Esterase Negative Urine RBC 0 Urine WBC 0 Ur Squamous Epith Cells 0 Urine Bacteria None Urine Opiates Screen Negative Urine Fentanyl Screen Negative Ur Barbiturates Screen Negative U Amphetamin/Meth Scrn Negative U Benzodiazepines Scrn Negative U Cocaine Metab Screen Negative U Marijuana (THC) Screen Negative Assessment & Plan Assessment and plan (1) Stroke-like symptom: Status: Acute Assessment and plan: With abnormal CT brain in the left parietal area. Follow-up with the brain MRI.
[2024-06-04] VITALS: BP 119/63; PULSE 73; PULSE 74; RESP 19; TEMP 36.5; O2SAT 97
--- NOTE | 2024-06-04 00:22 | ECHO_ITS ---
Transthoracic Echo Report Ht (in): 71 Wt (lb): 208 Exam Location: [facility] Status: Inpatient Regional Sales Coordinator: LESTER Carrillo^^^^ Indications: Procedure Performed: BP: 122 / 71 HR: 81 Technical Quality: Good MEASUREMENTS (Male / Female) Normal Values 2D ECHO LV Diastolic Diameter PLAX 4.8 cm 4.2 - 5.9 / 3.9 - 5.3 cm LV Systolic Diameter PLAX 3.3 cm IVS Diastolic Thickness 0.9 cm 0.6 - 1.0 / 0.6 - 0.9 cm LVPW Diastolic Thickness 0.8 cm 0.6 - 1.0 / 0.6 - 0.9 cm LV Relative Wall Thickness 0.3 LVOT Diameter 1.8 cm Aortic Root Diameter 3.5 cm LA Systolic Diameter LX 3.0 cm 3.0 - 4.0 / 2.7 - 3.8 cm LV Ejection Fraction MOD BP 58.9 % >= 55 % LV Cardiac Index MOD BP 2476.9 cm?/min?m? LV Ejection Fraction MOD 4C 61.0 % LV Cardiac Index MOD 4C 2794.4 cm?/min?m? LV Ejection Fraction 4C AL 62.7 % LV Cardiac Index 4C AL 3001.4 cm?/min?m? LV Ejection Fraction MOD 2C 54.6 % LV Cardiac Index MOD 2C 1997.0 cm?/min?m? LV Ejection Fraction 2C AL 57.0 % LV Cardiac Index 2C AL 2125.1 cm?/min?m? LA Volume Index 15.4 cm?/m? 16 - 28 cm?/m? DOPPLER AV Peak Velocity 125.0 cm/s AV Peak Gradient 6.3 mmHg AV Mean Gradient 5.0 mmHg AV Velocity Time Integral 32.8 cm AI Peak Velocity 169.5 cm/s AI Peak Gradient 11.5 mmHg AI Pressure Half Time 566.5 ms LVOT Peak Velocity 77.6 cm/s LVOT Peak Gradient 2.4 mmHg LVOT Velocity Time Integral 19.3 cm LVOT Cardiac Index 1812.9 cm?/min?m? AV Area Cont Eq vti 1.5 cm? AV Area Cont Eq pk 1.6 cm? MV Area PHT 2.9 cm? Mitral E Point Velocity 70.1 cm/s Mitral A Point Velocity 91.8 cm/s Mitral E to A Ratio 0.8 LV E' Lateral Velocity 8.0 cm/s Mitral E to LV E' Lateral Ratio 8.8 LV E' Septal Velocity 7.2 cm/s Mitral E to LV E' Septal Ratio 9.7 TR Peak Velocity 181.5 cm/s TR Peak Gradient 13.2 mmHg PV Peak Velocity 112.0 cm/s PV Peak Gradient 5.0 mmHg RVOT Peak Velocity 36.2 cm/s FINDINGS Left Ventricle Normal left ventricular size, wall thickness, systolic function with no obvious regional wall motion abnormalities. There is grade I diastolic dysfunction of the left ventricle (impaired relaxation pattern). The left ventricular ejection fraction is normal, estimated at 55-60%. Right Ventricle The right ventricle is normal in size and systolic function. The estimated right ventricular systolic pressure, 20 mmHg. Left Atrium The left atrium is normal by two-dimensional, color flow and Doppler imaging with no structural abnormalities, no thrombus formation present. Right Atrium The right atrium is normal by two-dimensional imaging, color flow and Doppler imaging with no structural abnormalities, no thrombus formation present. Atrial Septum The interatrial septum is normal to color flow Doppler and agitated saline imaging. Aorta The aorta is normal by two-dimensional, color flow and Doppler interrogation. Mitral Valve Trace to mild mitral regurgitation. Mild mitral annular calcification. Aortic Valve Trace to mild aortic valve regurgitation. Tricuspid Valve There is mild tricuspid valve regurgitation. Pulmonic Valve Trivial pulmonic valve regurgitation. Vessels The pulmonary artery appears normal. The inferior vena cava pulmonary and hepatic veins appear normal. Pericardium The pericardium is normal by two-dimensional imaging. There is no significant pericardial effusion. CONCLUSIONS indication: Stroke w/ Bubble study Normal left ventricular size and function. Approximate ejection fraction is 60%. RV appears normal with RVSP 20 mmHg. IAS is normal to color flow Doppler and agitated saline imaging. NEGTIVE BUBBLE STUDY Trace mitral and trace tricuspid regurgitation Rashida Guardado (Electronically Signed) Final Date: 04 June 2024 14:08
[2024-06-04 04:00] VITALS: BP 126/84; PULSE 76; RESP 19; TEMP 37; O2SAT 96
[2024-06-04 05:49] VITALS: BMI 29.0
[2024-06-04 05:52] LABS: Basophils # (Auto) 0.1 Thou/mm3 (0.0-0.2); Basophils % (Auto) 1 % (0-2.5); Eosinophils # (Auto) 0.2 Thou/mm3 (0.0-0.5); Eosinophils % (Auto) 3 % (0-10); Hematocrit 42.7 % (41.0-53.0); Hemoglobin 14.5 g/dL (13.5-16.0); Immature Granulocytes % (Auto) 1 % (0-0); Immature Granulocytes Auto 0.04 Thou/mm3 (0.00-0.00); Lymphocytes # (Auto) 2.8 Thou/mm3 (1.0-4.8); Lymphocytes % (Auto) 38 % (10-50); Mean Corpuscular Hemoglobin 30.1 pg (25.0-35.0); Mean Corpuscular Volume 89 fL (80-100); Monocytes # (Auto) 0.7 Thou/mm3 (0.0-0.8); Monocytes % (Auto) 10 % (0-12); Neutrophils # (Auto) 3.5 Thou/mm3 (1.8-7.7); Neutrophils % (Auto) 48 % (37-80); Nucleated Red Blood Cell % 0 /100 WBC (0); Platelet Count 288 Thou/mm3 (140-440); RDW Standard Deviation 45.1 fL (35.1-43.9); Red Blood Count 4.82 Miln/mm3 (4.50-5.90); White Blood Count 7.3 Thou/mm3 (3.8-10.6)
[2024-06-04 06:39] LABS: Alanine Aminotransferase 19 U/L (10-49); Albumin, Serum 4.4 gm/dL (3.4-4.8); Albumin/Globulin Ratio 1.7 (1.2-2.2); Alkaline Phosphatase 69 U/L (46-116); Anion Gap 10 (7-16); Aspartate Amino Transferase 16 U/L (0-34); BUN/Creatinine Ratio 19 Ratio (12-20); Bilirubin,Total 0.6 mg/dL (0.3-1.2); Blood Urea Nitrogen 17 mg/dL (9-23); Calcium 9.2 mg/dL (8.3-10.6); Calcium (Corrected) 9.2 mg/dL (8.5-10.1); Carbon Dioxide 27.5 mMol/L (20.0-31.0); Chloride 102 mMol/L (98-107); Creatinine (Component) 0.9 mg/dL (0.6-1.3); Estimated Creatinine Clearance 92.2 mL/min (>60); Globulin 2.6 gm/dL (2.3-3.5); Glucose 140 mg/dL (74-106); Magnesium 2.1 mg/dL (1.6-2.6); Osmolality,Calculated 281 (275-295); Phosphorous 3.5 mg/dL (2.4-5.1); Potassium 3.9 mMol/L (3.4-5.1); Sodium 139 mMol/L (136-145); eGFR > 60 See Note
[2024-06-04 08:00] VITALS: BP 136/79; PULSE 74; PULSE 76; RESP 13; TEMP 37.1; O2SAT 96
[2024-06-04] MEDS: ASPIRIN EC 81 MG TABEC PO (08:44)
[2024-06-04] MEDS: HEPARIN SOD INJ 5000 UNIT/ML VIAL SC (08:44)
[2024-06-04] MEDS: PANTOPRAZOLE INJ 40 MG VIAL IVP (08:44)
--- NOTE | 2024-06-04 09:17 | PC.SS ---
SS follow up note; Neurology Rec's pending.
--- NOTE | 2024-06-04 10:54 | PD.RESPRO ---
Documentation for date of: 06/04/24 Subjective Subjective Interval history: Patient seen and assessed at bedside this morning with son-in-law present in room. Patient states to be feeling better today, has more strength in the left lower extremity per son-in-law. Patient is no longer confused as ANO x 3. Patient states he is hoping he will be discharged today. Exam Vital Signs Temp Pulse Resp BP Pulse Ox O2 Del Method 98.7 F 74 13 136/79 H 96 Room Air 06/04/24 08:00 06/04/24 08:00 06/04/24 08:00 06/04/24 08:00 06/04/24 08:00 06/04/24 08:00 Narrative Exam General: AOx3, no acute distress, able to speak full sentences Cardiovascular: regular rate and rhythm, S1/S2 present, no murmurs appreciated Pulmonary: clear to auscultation bilaterally, no rales/rhonchi/wheezes Abdominal: soft, non-tender, non-distended, no rebound/guarding, normal bowel sounds present Musculoskeletal: normal ROM, no peripheral edema Skin: warm and dry, intact, no rashes Neuro: CN II-XII intact, no focal deficits. Upper extremity strength 5 out of 5 bilaterally. Right lower extremity strength 5 out of 5, left lower extremity strength 4 out of 5. Objective Labs 06/04/24 05:09 06/04/24 05:09 Labs: Laboratory Results - last 24 hr 06/04/24 05:09 WBC 7.3 RBC 4.82 Hgb 14.5 Hct 42.7 MCV 89 MCH 30.1 MCHC 34.0 RDW Std Deviation 45.1 H Plt Count 288 D Neut % (Auto) 48 Lymph % (Auto) 38 [place] % (Auto) 10 Eos % (Auto) 3 Baso % (Auto) 1 Neut # (Auto) 3.5 Lymph # (Auto) 2.8 [place] # (Auto) 0.7 Eos # (Auto) 0.2 Baso # (Auto) 0.1 Immature Gran # (Auto) 0.04 H Absolute Nucleated RBC 0.00 Immature Gran % 1 H Nucleated RBC % 0 Sodium 139 Potassium 3.9 Chloride 102 Carbon Dioxide 27.5 Anion Gap 10 BUN 17 Creatinine 0.9 Estim Creat Clear Calc 92.2 eGFR > 60 BUN/Creatinine Ratio 19 Glucose 140 H Calculated Osmolality 281 Calcium 9.2 Corrected Calcium 9.2 Phosphorus 3.5 Magnesium 2.1 Total Bilirubin 0.6 AST 16 ALT 19 Alkaline Phosphatase 69 Total Protein 7.0 Albumin 4.4 Globulin 2.6 Albumin/Globulin Ratio 1.7 Quality Measures Quality Measures none Advance care planning discussed with:: patient Assessment & Plan Assessment Current Active Medications: Generic Name Dose Route Start Last Admin Trade Name Freq PRN Reason Stop Dose Admin Acetaminophen 650 mg 06/03/24 00:20 Acetaminophen 325 Mg Tablet PO 07/03/24 00:19 Q6H PRN Fever >101.5 Aspirin 81 mg 06/03/24 09:00 06/04/24 08:44 Aspirin Ec 81 Mg Tabec PO 07/03/24 08:59 81 mg QDAY JENNIFER Administration Atorvastatin Calcium 40 mg 06/03/24 21:00 06/03/24 21:04 Atorvastatin Calcium 20 Mg Tablet PO 07/03/24 20:59 40 mg HS JENNIFER Administration Bisacodyl 10 mg 06/03/24 00:20 Bisacodyl 5 Mg Tabec PO 07/03/24 00:19 QDAY PRN CONSTIPATION Protocol Dextrose 25 ml 06/03/24 00:28 Dextrose 50%-Water Inj 50 Ml Syringe IV 07/03/24 00:27 Q15MIN PRN BG 50-70 responsive npo pt Dextrose 50 ml 06/03/24 00:28 Dextrose 50%-Water Inj 50 Ml Syringe IV 07/03/24 00:27 Q15MIN PRN BG <50 OR BG <70 & pt unresponsive Glucagon 1 mg 06/03/24 00:28 Glucagon Inj 1 Mg Vial IM Q15MIN PRN BG <70, and no IV access Heparin Sodium (Porcine) 5,000 unit 06/04/24 09:00 06/04/24 08:44 Heparin Sod Inj 5000 Unit/Ml Vial SC 06/18/24 08:59 5,000 unit Q12HR JENNIFER Administration Hydralazine HCl 10 mg 06/03/24 00:26 Hydralazine Inj 20 Mg/Ml Vial IV 07/03/24 00:25 Q2H PRN SBP >220mmHg Insulin Human Lispro 0 unit 06/03/24 07:30 06/04/24 08:44 Insulin Lispro (Admelog) 1 Unit/0.01 Ml Unit SC 07/03/24 07:29 Not Given AC JENNIFER Protocol Lorazepam 2 mg 06/03/24 18:43 06/03/24 19:14 Lorazepam 2 Mg/Ml Vial IVP 06/08/24 18:42 2 mg X1 PRN Administration ANXIETY Mirtazapine 30 mg 06/03/24 21:00 06/03/24 21:04 Mirtazapine 15 Mg Tablet PO 07/03/24 20:59 30 mg HS JENNIFER Administration Ondansetron HCl 4 mg 06/03/24 00:20 Ondansetron Inj 2 Mg/Ml Inj 2 Ml IV 07/03/24 00:19 Q6H PRN NAUSEA OR VOMITING Protocol Oxycodone/Acetaminophen 1 tab 06/03/24 00:20 Oxycodone/Apap 5/325 Tablet PO 06/08/24 00:19 Q6H PRN PAIN SCALE 4-6 (Moderate Pantoprazole Sodium 40 mg 06/03/24 09:00 06/04/24 08:44 Pantoprazole Inj 40 Mg Vial IVP 07/03/24 08:59 40 mg QDAY JENNIFER Administration Quetiapine Fumarate 25 mg 06/03/24 21:00 06/03/24 21:04 Quetiapine Fumarate 25 Mg Tablet PO 07/03/24 20:59 25 mg HS JENNIFER Administration Plan #Acute right basal ganglia stroke MRI shows acute right basal ganglia 10 mm stroke Patient slightly improved today with more strength in left lower extremity. Continue working with PT Continue with aspirin 81 mg Initiate Plavix 75 mg for dual antiplatelet for 21 days Continue with statin Strict glycemic control and BP control Cardiac echo with bubble pending #Hypertension #Diabetes mellitus #Bipolar disorder Continue management per primary team Case discussed with attending Dr Matilde Schmid MD PGY3 Attending Provider Attestation/Addendum I have reviewed the patient's chart independently and I agree with resident findings, assessment and plan of care. Patient does not have any focal neurological deficit he will continue with aspirin, Plavix and statin. Stable for discharge home and I will see him back in 2 weeks.
[2024-06-04] MEDS: CLOPIDOGREL BISULFATE 75 MG TABLET PO (11:47)
--- NOTE | 2024-06-04 11:49 | PD.RESPRO ---
Documentation for date of: 06/04/24 Exam Vital Signs Temp Pulse Resp BP Pulse Ox O2 Del Method 98.7 F 74 13 136/79 H 96 Room Air 06/04/24 08:00 06/04/24 08:00 06/04/24 08:00 06/04/24 08:00 06/04/24 08:00 06/04/24 08:00 Objective Labs 06/04/24 05:09 06/04/24 05:09 Labs: Laboratory Results - last 24 hr 06/04/24 05:09 WBC 7.3 RBC 4.82 Hgb 14.5 Hct 42.7 MCV 89 MCH 30.1 MCHC 34.0 RDW Std Deviation 45.1 H Plt Count 288 D Neut % (Auto) 48 Lymph % (Auto) 38 [place] % (Auto) 10 Eos % (Auto) 3 Baso % (Auto) 1 Neut # (Auto) 3.5 Lymph # (Auto) 2.8 [place] # (Auto) 0.7 Eos # (Auto) 0.2 Baso # (Auto) 0.1 Immature Gran # (Auto) 0.04 H Absolute Nucleated RBC 0.00 Immature Gran % 1 H Nucleated RBC % 0 Sodium 139 Potassium 3.9 Chloride 102 Carbon Dioxide 27.5 Anion Gap 10 BUN 17 Creatinine 0.9 Estim Creat Clear Calc 92.2 eGFR > 60 BUN/Creatinine Ratio 19 Glucose 140 H Calculated Osmolality 281 Calcium 9.2 Corrected Calcium 9.2 Phosphorus 3.5 Magnesium 2.1 Total Bilirubin 0.6 AST 16 ALT 19 Alkaline Phosphatase 69 Total Protein 7.0 Albumin 4.4 Globulin 2.6 Albumin/Globulin Ratio 1.7 Quality Measures Quality Measures none Assessment & Plan Assessment Current Active Medications: Generic Name Dose Route Start Last Admin Trade Name Freq PRN Reason Stop Dose Admin Acetaminophen 650 mg 06/03/24 00:20 Acetaminophen 325 Mg Tablet PO 07/03/24 00:19 Q6H PRN Fever >101.5 Aspirin 81 mg 06/03/24 09:00 06/04/24 08:44 Aspirin Ec 81 Mg Tabec PO 07/03/24 08:59 81 mg QDAY JENNIFER Administration Atorvastatin Calcium 40 mg 06/03/24 21:00 06/03/24 21:04 Atorvastatin Calcium 20 Mg Tablet PO 07/03/24 20:59 40 mg HS JENNIFER Administration Bisacodyl 10 mg 06/03/24 00:20 Bisacodyl 5 Mg Tabec PO 07/03/24 00:19 QDAY PRN CONSTIPATION Protocol Clopidogrel Bisulfate 75 mg 06/04/24 11:45 06/04/24 11:47 Clopidogrel Bisulfate 75 Mg Tablet PO 07/04/24 11:44 75 mg QDAY JENNIFER Administration Dextrose 25 ml 06/03/24 00:28 Dextrose 50%-Water Inj 50 Ml Syringe IV 07/03/24 00:27 Q15MIN PRN BG 50-70 responsive npo pt Dextrose 50 ml 06/03/24 00:28 Dextrose 50%-Water Inj 50 Ml Syringe IV 07/03/24 00:27 Q15MIN PRN BG <50 OR BG <70 & pt unresponsive Glucagon 1 mg 06/03/24 00:28 Glucagon Inj 1 Mg Vial IM Q15MIN PRN BG <70, and no IV access Heparin Sodium (Porcine) 5,000 unit 06/04/24 09:00 06/04/24 08:44 Heparin Sod Inj 5000 Unit/Ml Vial SC 06/18/24 08:59 5,000 unit Q12HR JENNIFER Administration Hydralazine HCl 10 mg 06/03/24 00:26 Hydralazine Inj 20 Mg/Ml Vial IV 07/03/24 00:25 Q2H PRN SBP >220mmHg Insulin Human Lispro 0 unit 06/03/24 07:30 06/04/24 11:44 Insulin Lispro (Admelog) 1 Unit/0.01 Ml Unit SC 07/03/24 07:29 Not Given AC [facility] Protocol Lorazepam 2 mg 06/03/24 18:43 06/03/24 19:14 Lorazepam 2 Mg/Ml Vial IVP 06/08/24 18:42 2 mg X1 PRN Administration ANXIETY Mirtazapine 30 mg 06/03/24 21:00 06/03/24 21:04 Mirtazapine 15 Mg Tablet PO 07/03/24 20:59 30 mg HS JENNIFER Administration Ondansetron HCl 4 mg 06/03/24 00:20 Ondansetron Inj 2 Mg/Ml Inj 2 Ml IV 07/03/24 00:19 Q6H PRN NAUSEA OR VOMITING Protocol Oxycodone/Acetaminophen 1 tab 06/03/24 00:20 Oxycodone/Apap 5/325 Tablet PO 06/08/24 00:19 Q6H PRN PAIN SCALE 4-6 (Moderate Pantoprazole Sodium 40 mg 06/03/24 09:00 06/04/24 08:44 Pantoprazole Inj 40 Mg Vial IVP 07/03/24 08:59 40 mg QDAY JENNIFER Administration Quetiapine Fumarate 25 mg 06/03/24 21:00 06/03/24 21:04 Quetiapine Fumarate 25 Mg Tablet PO 07/03/24 20:59 25 mg HS JENNIFER Administration
[2024-06-04 12:00] VITALS: BP 129/81; PULSE 76; PULSE 85; RESP 17; TEMP 36.9; O2SAT 93
--- NOTE | 2024-06-04 12:07 | CHAP ---
Patient was visited by the Spiritual Care Volunteer who prayed for them. (Volunteer was in the hospital from 11:00-12:07).
--- NOTE | 2024-06-04 14:19 | ESDS_ITS ---
Planned Discharge Date 06/04/24 DS: Providers Provider Date of admission: 06/02/24 23:56 Primary care physician: Physician No Primary/Family Admitting Provider: Nicolas Chong MD Attending Provider on Admission: Sage Persaud DO Consults: 06/02/24 19:29 Consult to Neurology / Tele-Neurology Stat Comment: Dizziness numbness rule ou CVA Consulting Provider: Cricket Clayton 06/03/24 00:23 Referral Physical Therapy Stat Comment: Physician Instructions: 06/03/24 00:32 Referral Discharge Planning Stat Comment: Attending Provider on DC: Bryan Clarke MD Discharging Provider: Bryan Clarke MD DS: Diagnosis Problem List Completed Was Problem List Reviewed/Reconciled?: Yes Hospital Course Hospital Course Hospital course: Patient was a 68-year-old male with history of bipolar disorder, HTN, Parkinson's, T2DM who presented with generalized weakness/slurred speech/facial numbness that began 3 days prior to admission, and was admitted for CVA workup. 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 Echo was negative for bubble study. Neuro was consulted and patient was started on aspirin 81 mg, Plavix 75 mg and atorvastatin 40 mg. PT eval was taken and recommended a FWW. On day of discharge, patient was deemed stable. He was advised to follow-up with PCP, psych regarding home meds, and neurology within 1 to 2 weeks. Plan was discussed with patient's daughter over the phone. 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 Persaud. Bryan Clarke MD PGY-3 Status at Discharge Cognitive/behavioral status at discharge: AAOx3 Time Spent with Patient Time attestation: Total time spent providing and/or coordinating discharge services: Time spent: Greater than 30 minutes Quality: Stroke Pt Provided Written Stroke Discharge Instructions: Yes Exam Vital Signs Temp Pulse Resp BP Pulse Ox O2 Del Method 98.5 F 85 17 129/81 93 L Room Air 06/04/24 12:00 06/04/24 12:00 06/04/24 12:00 06/04/24 12:00 06/04/24 12:00 06/04/24 12:00 Narrative Exam General: AOx3, resting comfortably, able to speak full sentences HEENT: NC/AT, mucous membranes moist, bilateral sclera anicteric Cardiovascular: regular rate and rhythm, S1/S2 present, no murmurs appreciated Pulmonary: clear to auscultation bilaterally, no rales/rhonchi/wheezes Abdominal: soft, non-tender, non-distended, no rebound/guarding, normal bowel sounds present Musculoskeletal: normal ROM, no peripheral edema Skin: warm and dry, intact, no rashes Neuro: CN II-XII intact, Finger to nose abnormal; sensory normal Discharge Plan Plan Patient Disposition: HOME (Self Care) Patient condition on transfer: Stable Care Plan Goals: Take aspirin 81mg and clopidogrel 75mg for 21 days together; discontinue aspirin after that and continue clopidogrel. Your ibuprofen and meloxicam were held due to increased risk of bleed while taking Aspirin and Clopidogrel. Added atorvastatin 80mg. Recommend to repeat lipid panel in 3 months. Follow up with Dr. Clayton within 1-2 weeks Follow up with PCP and Psychiatrist outpatient to discuss home medication regimen Use FWW as recommended by physical therapist If your PCP does not have any appointments within the next week, or you do not have a PCP, you can follow at the [facility] ([address] [facility]). Please call [phone] to schedule an appointment with Dr. Garay on Friday afternoons Prescriptions/Referrals Prescriptions/Med Rec: New aspirin [Ecotrin Low Strength] 81 mg Tablet,Delayed Release (Dr/Ec) 81 mg PO QDAY 21 Days Qty: 21 0RF atorvastatin 80 mg tablet 80 mg PO HS 30 Days Qty: 30 1RF clopidogrel 75 mg Tablet 75 mg PO QDAY 30 Days Qty: 30 1RF Continued risperidone [Risperdal] 2 MG tablet 6 mg PO .QHS Qty: 0 paroxetine HCl [Paxil] 20 MG tablet 20 mg PO QAM Qty: 0 mirtazapine [Remeron] 30 MG tablet 30 mg PO HS Qty: 0 amlodipine 5 mg tablet 5 mg PO .QHS quetiapine 25 mg tablet 25 mg PO .QHS Patient Comments: take 2 tablets by mouth at bedtime cetirizine 10 mg tablet 10 mg PO QHSPRN dapaglifloz propaned-metformin [Xigduo XR] 10-1,000 mg tablet, IR - ER, biphasic 24hr 1 tab PO QDAY risperidone [Risperdal] 2 mg tablet 2 mg PO QAM benztropine 1 mg tablet 1 mg PO BID Patient Comments: take 1 tablet by mouth twice a day hydroxyzine HCl 50 mg tablet 50 mg PO BID Held ibuprofen 800 MG tablet 800 mg PO Q8HR PRN (Reason: PAIN) Qty: 0 Hold Instructions: Resume on 07/02/24. Hold until advised to resume by neurology or PCP, as you will be taking aspirin and plavix for 21 days lorazepam 1 MG tablet 1 mg PO QDAY PRN (Reason: ANXIETY) Qty: 0 Hold Instructions: Resume on 07/02/24. on hold by prescribing provider; follow up on when to resume trazodone 100 mg Tablet 100 mg PO HS Hold Instructions: Resume on 07/02/24. Currently on hold; discuss with prescribing provider on when to resume lorazepam [Ativan] 1 mg tablet 1 mg PO BID PRN (Reason: anxiety) Qty: 20 0RF Hold Instructions: Resume on 07/02/24. on hold by prescribing provider; follow up on when to resume lorazepam [Ativan] 1 mg tablet 1 mg PO BID Qty: 2 0RF Hold Instructions: Resume on 07/02/24. on hold by prescribing provider; follow up on when to resume meloxicam 15 mg tablet 15 mg PO QDAY Hold Instructions: Resume on 07/02/24. Hold until advised to resume by neur ology or PCP, as you will be taking Aspirin and Plavix for 21 days Discontinued hydroxyzine HCl 25 mg tablet 50 mg PO BID Patient Comments: take 1 tablet by mouth twice a day Referrals: No Primary/Family,Physician [Primary Care Provider] - Cricket Clayton MD [Physician] - Patient/Caregiver Discharge Instructions Discharge Activity: as per physical therapy Education Materials: Plavix Oral Tablet 75 mg, What Is Ischemic Stroke?, Preparing Your Home After Stroke, Discharge Instructions for Stroke, Discharge Instructions for ..., Risk Factors for Stroke Print Language: Cameroonian Stand Alone Forms: Elza Award Info., Patient Portal Info Letter Discharge Order Discharge Orders: Discharge (Routine); Ordered 06/04/24 Ordered By: Bryan Clarke Quality Discharge Quality Measures VTE prophylaxis Attestestation MD Attestation I have discussed and was present for the essential components of the discharge history, physical examination, diagnosis, and discharge treatment plan with the resident. I agree with the patient's discharge care as documented by the resi dent and amended herein by me. Luisito Persaud, . The patient understood all discharge instructions, all questions were answered satisfactorily. The patient was instructed to return to the Emergency Department is symptoms worsened or persisted. Patient was stable, afebrile, tolerating p.o. intake and ambulatory at time of discharge. Although this document has been carefully reviewed, there may still be some phonetic and other typographical errors. These errors are purely grammatical due to imperfections in the software program and should not be construed in any way to compromise the substance of the patient's medical care during this visit.
[2024-06-04 16:00] VITALS: PULSE 86
== END 2024-06-04 16:45 | disposition home or self-care (01) | DRG 66 ==
LOC: SERX 22:18 → SERHOLD 06-03 00:52 → S2NX 06-03 04:15
PROVIDERS: Nurse Practitioner Primary Care; Student in an Organized Health Care Education/Training Program; Admitting Provider Internal Medicine; Emergency Provider Emergency Medicine; Visit Provider Student in an Organized Health Care Education/Training Program
DX: I63.531 Cerebral infarction due to unspecified occlusion or stenosis of right posterior cerebral artery (principal); R47.81 Slurred speech; R26.81 Unsteadiness on feet; R29.6 Repeated falls; E11.9 Type 2 diabetes mellitus without complications; I10 Essential (primary) hypertension; R20.0 Anesthesia of skin; F31.9 Bipolar disorder, unspecified; M50.30 Other cervical disc degeneration, unspecified cervical region; M48.02 Spinal stenosis, cervical region; G20.A1 Parkinson's disease without dyskinesia, without mention of fluctuations; Z79.82 Long term (current) use of aspirin; Z79.84 Long term (current) use of oral hypoglycemic drugs; Z79.899 Other long term (current) drug therapy; Z87.891 Personal history of nicotine dependence
CPT/HCPCS: 36415; 70450; 70544; 72125; 80053; 80061; 80307; 80320; 81001; 83036; 83735; 83880; 84100; 84443; 84484; 85025; 85610; 85730; 92521; 92610; 93005; 93306; 99285; J1643; J2060; J2470; J7120; A9270; G0480

== ENCOUNTER → 2024-10-01 | Outpatient (CLI) | payer MEDICARE, MEDICAID, SELFPAY ==
[2024-10-01 10:36] LABS: Cardiac Risk Estimate 2.1 RATIO (4.0-6.7); Cholesterol 103 mg/dL (132-200); HDL Cholesterol 49 mg/dL (40-60); LDL Cholesterol,Calculated 38 mg/dL (0-130); Triglycerides 82 mg/dL (30-150)
== END | disposition home or self-care (01) ==
LOC: COPL 09:45
PROVIDERS: PCP Physician Assistant; Referring Provider Psychiatry & Neurology Neurology; Visit Provider Psychiatry & Neurology Neurology
DX: E78.5 Hyperlipidemia, unspecified (principal); I10 Essential (primary) hypertension; I63.9 Cerebral infarction, unspecified
CPT/HCPCS: 36415; 80061

== ENCOUNTER → 2024-12-28 | Outpatient (CLI) | payer MEDICARE, MEDICAID, SELFPAY ==
[2024-12-28 11:04] LABS: Cardiac Risk Estimate 2.8 RATIO (4.0-6.7); Cholesterol 125 mg/dL (132-200); HDL Cholesterol 44 mg/dL (40-60); LDL Cholesterol,Calculated 65 mg/dL (0-130); Triglycerides 82 mg/dL (30-150)
== END | disposition home or self-care (01) ==
LOC: COPL 09:24
PROVIDERS: PCP Family Medicine; Referring Provider Psychiatry & Neurology Neurology; Visit Provider Psychiatry & Neurology Neurology
DX: E78.5 Hyperlipidemia, unspecified (principal); I63.9 Cerebral infarction, unspecified
CPT/HCPCS: 36415; 80061

== ENCOUNTER 2025-01-16 16:30 | Emergency (ER) | payer MEDICARE, MEDICAID, SELFPAY ==
[2025-01-16 16:57] VITALS: BP 147/87; PULSE 86; RESP 19; TEMP 36.4; O2SAT 97; BMI 32.2
--- NOTE | 2025-01-16 17:07 | EKG_ITS ---
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1955 Requested By: Walter Keith Order Number: [id number] Reading MD: Walter Keith Measurements Intervals [place] Rate: 85 P: 43 MN: 157 QRS: -54 QRSD: 102 T: 66 QT: 341 QTc: 406 Interpretive Statements SINUS RHYTHM PATTERN CONSISTENT WITH PULMONARY DISEASE LEFT ANTERIOR FASCICULAR BLOCK [QRS AXIS <= -45, QR IN I, RS IN II] MINIMAL VOLTAGE CRITERIA FOR LVH, CONSIDER NORMAL VARIANT [MEETS CRITERIA IN ONE OF: R(aVL), S(V1), R(V5), R(V5/V6)+S(V1)] NONSPECIFIC T-WAVE ABNORMALITY Compared to ECG 06/02/2024 20:57:42 Left anterior fascicular block now present T-wave abnormality now present Left-axis deviation no longer present /store/S0/[id number]/ecg/[id number].pdf
--- NOTE | 2025-01-16 17:07 | XR_ITS ---
Examination: CT brain head without contrast. 2-D sagittal coronal reconstructions Date and time of exam: January 16, 2025, 1755 hours INDICATIONS: Weakness and headache beginning 4 days ago CTDI: vol (mGy): 55.7 DLP: (mGycm): 1079 Technique: Multiple CT axial sections of the brain have been obtained, 5 mm slice thickness. Contrast has not been administered. 2-D sagittal, coronal reconstructions have been obtained Low dose protocols were performed. One or more of the following dose reduction techniques were used; automated exposure control, adjustment of the mA and/or KV according to patient size, use of iterative reconstruction technique. Findings: No significant ventricular enlargement. Small old appearing infarct in the right basal ganglia Intra-axial or extra-axial hemorrhage density is not seen. No mass effect or midline shift Basal cisterns are not remarkable. Fourth ventricle is midline. Cranial vault intact. Impression: Negative for acute hemorrhage, mass effect or midline shift A brain MRI follow-up would best assess for acute ischemic change
--- NOTE | 2025-01-16 17:08 | PD.EDRME ---
Rapid Medical Screening Exam [facility] Arrival date/time: 01/16/25 16:30 69-year-old male with a history of hypertension, hyperlipidemia presents to the emergency room with a chief complaint of left lower extremity numbness and weakness, neck pain x 4 days I have greeted and performed a focused initial assessment of this patient. A comprehensive ED assessment and evaluation of the patient, analysis of all test results, and completion of the medical decision making process will be conducted by additional ED providers. Chief Complaint: Weakness Time Seen by Provider: 01/16/25 16:56 Vital signs: Vital Signs Temperature 97.5 F 01/16/25 16:57 Pulse Rate 86 01/16/25 16:57 Respiratory Rate 19 01/16/25 16:57 Blood Pressure 147/87 H 01/16/25 16:57 Pulse Oximetry (%) 97 01/16/25 16:57 Oxygen Delivery Method Room Air 01/16/25 16:57 Vital signs reviewed by provider: Yes Exam: Left lower extremity 3/5/strength GCS 15 alert and oriented x 3 pupils are PERRLA Clinical Impression: TIA/weakness/
[2025-01-16 17:50] LABS: Basophils # (Auto) 0.1 Thou/mm3 (0.0-0.2); Basophils % (Auto) 1 % (0-2.5); Eosinophils # (Auto) 0.1 Thou/mm3 (0.0-0.5); Eosinophils % (Auto) 2 % (0-10); Hematocrit 43.9 % (41.0-53.0); Hemoglobin 15.2 g/dL (13.5-16.0); Immature Granulocytes Auto 0.04 Thou/mm3 (0.00-0.00); Lymphocytes # (Auto) 2.5 Thou/mm3 (1.0-4.8); Lymphocytes % (Auto) 31 % (10-50); Mean Corpuscular HGB Conc 34.6 g/dl (31.0-37.0); Mean Corpuscular Hemoglobin 31.0 pg (25.0-35.0); Mean Corpuscular Volume 89 fL (80-100); Monocytes # (Auto) 0.7 Thou/mm3 (0.0-0.8); Monocytes % (Auto) 9 % (0-12); Neutrophils # (Auto) 4.6 Thou/mm3 (1.8-7.7); Neutrophils % (Auto) 58 % (37-80); Nucleated Red Blood Cell # 0.00 Thou/mm3 (0.00-0.00); Nucleated Red Blood Cell % 0 /100 WBC (0); Platelet Count 213 Thou/mm3 (140-440); RDW Standard Deviation 44.0 fL (35.1-43.9); Red Blood Count 4.91 Miln/mm3 (4.50-5.90); White Blood Count 7.9 Thou/mm3 (3.8-10.6)
[2025-01-16 18:04] LABS: B-Type Natriuretic Peptide < 20 pg/mL (0-100)
[2025-01-16 18:07] LABS: INR 1.0 (0.9-1.3); Partial Thromboplastin Time 26.7 Seconds (22.0-36.0); Prothrombin Time 10.5 Seconds (9.0-12.2)
[2025-01-16 18:18] LABS: Alanine Aminotransferase 27 U/L (10-49); Albumin, Serum 4.9 gm/dL (3.4-4.8); Albumin/Globulin Ratio 2.0 (1.2-2.2); Alkaline Phosphatase 87 U/L (46-116); Anion Gap 9 (7-16); Aspartate Amino Transferase 21 U/L (0-34); BUN/Creatinine Ratio 13 Ratio (12-20); Bilirubin,Total 0.3 mg/dL (0.3-1.2); Blood Urea Nitrogen 10 mg/dL (9-23); Calcium 9.5 mg/dL (8.3-10.6); Calcium (Corrected) 9.5 mg/dL (8.5-10.1); Carbon Dioxide 29.8 mMol/L (20.0-31.0); Chloride 100 mMol/L (98-107); Creatinine (Component) 0.8 mg/dL (0.6-1.3); Estimated Creatinine Clearance 98.0 mL/min (>60); Globulin 2.5 gm/dL (2.3-3.5); Glucose 158 mg/dL (74-106); LDH (Lactate Dehydrogenase) 97 U/L (120-246); Magnesium 2.1 mg/dL (1.6-2.6); Osmolality,Calculated 279 (275-295); Potassium 3.7 mMol/L (3.4-5.1); Sodium 139 mMol/L (136-145); Total Protein 7.4 gm/dL (5.7-8.2); Troponin I < 0.002 ng/mL (0.0-0.045); eGFR > 60 See Note
[2025-01-16 20:08] VITALS: BP 151/87; PULSE 76; RESP 17; TEMP 36.9; O2SAT 95
--- NOTE | 2025-01-16 20:14 | XR_ITS ---
Examination: CT thoracic spine, with intravenous contrast. 2-D sagittal reconstructions. 2-D coronal reconstructions. 3-D reconstructions. Date and time of exam: January 16, 2025, 2047 hours INDICATIONS: Back pain with extremity weakness beginning 2 weeks ago, clinical diagnosis epidural abscess, history stroke CTDI: vol (mGy): 31.8 DLP: (mGycm): 1291 Technique: Multiple 1.25 mm axial sections of the thoracic spine 60 cc Isovue 370 2-D sagittal and coronal reconstructions have been obtained. 3-D reconstructions have been obtained. Low dose protocols were performed. One or more of the following dose reduction techniques were used; automated exposure control, adjustment of the mA and/or KV according to patient size, use of iterative reconstruction technique. Findings: Significant osteopenia. Advanced degenerative disc disease C5-C6, C6-C7 Moderate thoracic spondylosis No acute thoracic fracture No prevertebral soft tissue prominence Moderate diffuse thoracic disc narrowing Thoracic pedicles, laminae, transverse and posterior spinous processes intact No abnormal enhancement IMPRESSION: Advanced degenerative disc disease C5-C6, C6-C7 Moderate thoracic spondylosis No acute thoracic fracture Mild to moderate diffuse thoracic degenerative disc disease As clinically warranted, MRI thoracic spine pre and post contrast follow-up would best assess for epidural abscess
--- NOTE | 2025-01-16 20:15 | XR_ITS ---
Examination: CT lumbar spine with intravenous contrast 2-D sagittal reconstructions. 2-D coronal reconstructions. 3-D reconstructions. Date and time of exam: January 16, 2025, 24 9 hours INDICATIONS: Low back pain with lower extremity weakness beginning 2 weeks ago, clinical diagnosis epidural abscess CTDI: vol (mGy): 27.6 DLP: (mGycm): 1702 Technique: Multiple 1.25 mm axial sections of lumbar spine post intravenous administration 60 cc Isovue 370 2-D sagittal and coronal reconstructions have been obtained. 3-D reconstructions have been obtained. Low dose protocols were performed. One or more of the following dose reduction techniques were used; automated exposure control, adjustment of the mA and/or KV according to patient size, use of iterative reconstruction technique. Findings: Satisfactory alignment lumbar vertebral bodies Severe osteopenia Mild chronic osteoporotic compression L1 Moderate to advanced degenerative disc disease L4-L5, L5-S1 Distended urinary bladder No prevertebral soft tissue prominence L5-S1 3 mm central paracentral disc bulge displacing the left S1 nerve root More cephalad levels unremarkable IMPRESSION: Moderate to advanced degenerative disc disease L4-L5, L5-S1 L5-S1 3 mm central paracentral disc bulge displacing the left S1 nerve. MRI lumbar spine postcontrast follow-up would best assess for epidural abscess
--- NOTE | 2025-01-16 20:17 | PD.EDADULT ---
ED General RME/HPI General Chief complaint: Weakness Stated complaint: WEAKNESS TO BOTH LEGS, HISTORY OF STROKE Time Seen by Provider: 01/16/25 16:56 Arrival date/time: 01/16/25 16:30 CC: Mid to low back pain x 3 weeks with lower extremity weakness x 2 weeks. Insidious onset. Patient stated he had regular strength in both legs since he is stroke in May 2024. Patient now states he has difficulty walking secondary to the weakness. Patient denies fever chest pain shortness of breath or difficulty breathing. Patient is a diabetic. RME / HPI RME / HPI narrative: 01/16/25 16:30 69-year-old male with a history of hypertension, hyperlipidemia presents to the emergency room with a chief complaint of left lower extremity numbness and weakness, neck pain x 4 days I have greeted and performed a focused initial assessment of this patient. A comprehensive ED assessment and evaluation of the patient, analysis of all test results, and completion of the medical decision making process will be conducted by additional ED providers. Exam: Left lower extremity 3/5/strength GCS 15 alert and oriented x 3 pupils are PERRLA Impression: TIA/weakness/ Related Data Home Medications ?Medication ?Instructions ?Recorded ?Confirmed ibuprofen 800 mg tablet 800 mg PO Q8HR PRN PAIN #0 tabs 02/09/17 06/02/24 Held on 06/04/24. Instructions: Resume on 07/02/24. Hold until advised to resume by neurology or PCP, as you will be taking aspirin and plavix for 21 days lorazepam 1 mg tablet 1 mg PO QDAY PRN ANXIETY #0 tabs 02/09/17 06/02/24 Held on 06/04/24. Instructions: Resume on 07/02/24. on hold by prescribing provider; follow up on when to resume mirtazapine 30 mg tablet (Remeron) 30 mg PO HS #0 tabs 02/09/17 06/02/24 paroxetine HCl 20 mg tablet (Paxil) 20 mg PO QAM #0 tabs 02/09/17 06/02/24 risperidone 2 mg tablet (Risperdal) 6 mg PO .QHS #0 tabs 02/09/17 06/02/24 trazodone 100 mg tablet 100 mg PO HS 03/10/18 06/02/24 Held on 06/04/24. Instructions: Resume on 07/02/24. Currently on hold; discuss with prescribing provider on when to resume amlodipine 5 mg tablet 5 mg PO .QHS 06/02/24 06/02/24 benztropine 1 mg tablet 1 mg PO BID 06/02/24 06/02/24 cetirizine 10 mg tablet 10 mg PO QHSPRN 06/02/24 06/02/24 dapagliflozin propaned 10 1 tab PO QDAY 06/02/24 06/02/24 mg-metformin ER 1,000 mg tablet,ext rel 24hr (Xigduo XR) meloxicam 15 mg tablet 15 mg PO QDAY 06/02/24 06/02/24 Held on 06/04/24. Instructions: Resume on 07/02/24. Hold until advised to resume by neurology or PCP, as you will be taking Aspirin and Plavix for 21 days quetiapine 25 mg tablet 25 mg PO .QHS 06/02/24 06/02/24 risperidone 2 mg tablet (Risperdal) 2 mg PO QAM 06/02/24 06/02/24 hydroxyzine HCl 50 mg tablet 50 mg PO BID 06/03/24 06/03/24 Previous Rx's ?Medication ?Instructions ?Recorded lorazepam 1 mg tablet (Ativan) 1 mg PO BID #2 tabs 12/21/18 Held on 06/04/24. Instructions: Resume on 07/02/24. on hold by prescribing provider; follow up on when to resume lorazepam 1 mg tablet (Ativan) 1 mg PO BID PRN anxiety #20 tabs 09/08/20 Held on 06/04/24. Instructions: Resume on 07/02/24. on hold by prescribing provider; follow up on when to resume atorvastatin 80 mg tablet 80 mg PO HS 30 days #30 tabs 06/04/24 clopidogrel 75 mg tablet 75 mg PO QDAY 30 days #30 tabs 06/04/24 Allergies Allergy/AdvReac Type Severity Reaction Status Date / Time No Known Allergies Allergy Verified 06/02/24 16:18 Review of Systems Review of Systems Narrative Review of Systems: GEN: No fever, no chills, no weight loss EYES: No discharge, no visual changes, no pain HEENT: No ear pain, no congestion, no sore throat PULM: No shortness of breath, no cough, no congestion CV: No chest pain, no dyspnea on exertion, no palpitations GI: No nausea, no vomiting, no diarrhea, no pain, no constipation : No frequency, no urgency, no dysuria MUSC/SKEL: No joint pain, no back pain, +lower extremity weakness SKIN: No rash PSYCH: No hallucinations, no depression HEME/LYMPH: No easy bleeding or bruising tendencies NEURO: No weakness, no headache ED Exam Narrative Physical exam: [General: Not in any acute distress Head normocephalic HEENT: Within acceptable limits Neck is supple nontender Chest equal chest rise nontender to palpation Respiratory: Clear to auscultation no wheezes crackles or rubs CV: Rate rhythm is regular no murmurs rubs or clicks Abdomen is soft nontender no masses positive bowel sounds all 4 quadrants Back: No CVA tenderness no spinous process tenderness from cervical spine thoracic and lumbar spine Skin: Intact no petechiae rash induration ulceration or crepitus Extremities: Moving all extremities against resistance cap refill less than 2 seconds neurosensory intact Neuro: Awake alert oriented x3 Glascow coma 15 no focal deficits] Course Quality Measures none Orders Category Date Time Status EKG (ED ONLY) *Do not use* NOW Care 01/16/25 17:[address] head/brain wo con Stat Exams 01/16/25 17:[address] lumbar spine w con Stat Exams 01/16/25 20:[address] thoracic spine w con Stat Exams 01/16/25 20:14 Completed EKG (ED Only) Stat Exams 01/16/25 17:07 Draft B-Type Natriuretic Peptide Stat Lab 01/16/25 17:35 Completed CBC Stat Lab 01/16/25 17:35 Completed Comprehensive Metabolic Panel Stat Lab 01/16/25 17:35 Completed LDH (Lactate Dehydrogenase) Stat Lab 01/16/25 17:35 Completed Magnesium Stat Lab 01/16/25 17:35 Completed Partial Thromboplastin Time Stat Lab 01/16/25 17:35 Completed Prothrombin Time with INR Stat Lab 01/16/25 17:35 Completed Troponin I Stat Lab 01/16/25 17:35 Completed Urinalysis, C/S if Indicated Stat Lab 01/16/25 20:11 Completed Vital Signs Vital signs: Vital Signs Temperature 97.5 F 01/16/25 16:57 Pulse Rate 86 01/16/25 16:57 Respiratory Rate 19 01/16/25 16:57 Blood Pressure 147/87 H 01/16/25 16:57 Pulse Oximetry (%) 97 01/16/25 16:57 Oxygen Delivery Method Room Air 01/16/25 16:57 Discharge Plan Plan Patient Disposition: HOME (Self Care) Prescriptions/Referrals Prescriptions/Med Rec: No Action ibuprofen 800 MG tablet 800 mg PO Q8HR PRN (Reason: PAIN) Qty: 0 risperidone [Risperdal] 2 MG tablet 6 mg PO .QHS Qty: 0 paroxetine HCl [Paxil] 20 MG tablet 20 mg PO QAM Qty: 0 mirtazapine [Remeron] 30 MG tablet 30 mg PO HS Qty: 0 lorazepam 1 MG tablet 1 mg PO QDAY PRN (Reason: ANXIETY) Qty: 0 trazodone 100 mg Tablet 100 mg PO HS lorazepam [Ativan] 1 mg tablet 1 mg PO BID PRN (Reason: anxiety) Qty: 20 0RF lorazepam [Ativan] 1 mg tablet 1 mg PO BID Qty: 2 0RF amlodipine 5 mg tablet 5 mg PO .QHS quetiapine 25 mg tablet 25 mg PO .QHS Patient Comments: take 2 tablets by mouth at bedtime meloxicam 15 mg tablet 15 mg PO QDAY cetirizine 10 mg tablet 10 mg PO QHSPRN dapaglifloz propaned-metformin [Xigduo XR] 10-1,000 mg tablet, IR - ER, biphasic 24hr 1 tab PO QDAY risperidone [Risperdal] 2 mg tablet 2 mg PO QAM benztropine 1 mg tablet 1 mg PO BID Patient Comments: take 1 tablet by mouth twice a day hydroxyzine HCl 50 mg tablet 50 mg PO BID atorvastatin 80 mg tablet 80 mg PO HS 30 Days Qty: 30 1RF clopidogrel 75 mg Tablet 75 mg PO QDAY 30 Days Qty: 30 1RF Referrals: Rohini Driver [Primary Care Provider] - In 1 week Problem List Clinical Impression: Bilateral leg weakness Patient/Caregiver Discharge Instructions Other Activity Instructions:: Follow-up with your primary care doctor there is no significant finding that requires emergent or immediate intervention. Education Materials: Exercises to Prevent Falls Print Language: Romansh Stand Alone Forms: Elza Award Info., Patient Portal Info Letter PA/GROUP ART SUPERVISOR Supervising Physician PA/GROUP ART SUPERVISOR Supervising Physician: Ceasar Todd ENP MDM Labs Lab(s) Interpretation(s): CBC shows no acute leukocytosis anemia thrombocytopenia Coags within acceptable limits CMP shows no significant electrolyte imbalances other than a glucose of 158 no transaminitis or T. bili elevation Troponin is negative BMP is unremarkable Urine is unremarkable for urinary tract infection Imaging Imaging interpretation: interpreted by me Imaging Interpretation(s): CT head is negative as interpreted by me and read by radiology, CT lumbar and thoracic spine with IV contrast showed no soft tissue prominence, there is some DJD. And some disc bulging but no acute finding requires emergent or immediate intervention. Diagnosis Differential Diagnosis ED Complaint MDM: Epidural abscess vertebral body fracture spondylolisthesis
[2025-01-16 20:33] LABS: Collection Type, Urine Clean Catch; Squamous Epithelial Cell,Urine 0 /hpf (0-5)
[2025-01-16 20:51] LABS: Bilirubin,Urine Negative (Negative); Blood,Urine Negative (Negative); Clarity,Urine Clear (Clear/Hazy); Color,Urine Colorless (Lt Yel-Yel); Culture Indicated,Urine Not Indicated; Glucose, Urine 4+ (Negative); Ketones,Urine Negative (Negative); Leukocyte Esterase,Urine Negative (Negative); Nitrite,Urine Negative (Negative); PH,Urine 7.0 (5.0-7.0); Protein,Urine Negative (Neg - Trace); RBC,Urine 1 /hpf (0-3); Specific Gravity,Urine 1.008 (1.001-1.035); Urobilinogen,Urine Negative mg/dL (0.0-1.0); WBC,Urine < 1 /hpf (0-5)
[2025-01-16 21:55] VITALS: BP 129/69; PULSE 79; RESP 18; TEMP 37.1; O2SAT 95
== END 2025-01-16 23:12 | disposition home or self-care (01) ==
PROVIDERS: Nurse Practitioner Family; Emergency Provider Emergency Medicine; PCP Physician Assistant
DX: R53.1 Weakness (principal)
CPT/HCPCS: 36415; 70450; 72129; 72132; 80053; 81001; 83615; 83735; 83880; 84484; 85025; 85610; 85730; 93005; 99284; A4649; Q9967

== ENCOUNTER 2025-02-04 13:30 | Observation (INO) | payer MEDICARE, MEDICAID, SELFPAY ==
[2025-02-04 13:43] VITALS: BMI 32.2
[2025-02-04 13:46] VITALS: BP 146/83; PULSE 82; RESP 18; TEMP 37.1; O2SAT 95
--- NOTE | 2025-02-04 14:00 | PC.NURSE ---
Pt was admitted 05/2024 for stroke with left side deficit and has been going to px therapy, daughter states that he was here on 01/16/2025 due to weakness and was discharged home same day and told to continue physical therapy, daughter states that he is weak one both sides now and has had falls and is having difficulty ambulating with walker and weakness has progressing since 01/16/2025 and is unable to ambulate now with walker as of today, and is off some of his anxiety medications
--- NOTE | 2025-02-04 14:34 | PD.EDWEAK ---
ED Weakness RME/HPI General Chief complaint: Weakness Stated complaint: EXTREME WEAKNESS Time Seen by Provider: 02/04/25 13:37 Arrival date/time: 02/04/25 13:30 RME / HPI RME / HPI Narrative: 69 year old male with history of Parkinson's disease, hypertension, diabetes, bipolar disorder, presents to the ED for evaluation of bilateral arm and leg weakness today. States in the last 5 days he has been using a walker due to feeling slightly weak. However, today while trying to walk with his walker, noted he had no strength in arms or legs to stand or walk. Patient states prior to 5 days ago he was able to walk independantly with no difficulties. Denies any weight change, headache, fevers. Additionally reports urinating more frequently in the last 1 month. Related Data Home Medications ?Medication ?Instructions ?Recorded ?Confirmed ibuprofen 800 mg tablet 800 mg PO Q8HR PRN PAIN #0 tabs 02/09/17 06/02/24 Held on 06/04/24. Instructions: Resume on 07/02/24. Hold until advised to resume by neurology or PCP, as you will be taking aspirin and plavix for 21 days lorazepam 1 mg tablet 1 mg PO QDAY PRN ANXIETY #0 tabs 02/09/17 06/02/24 Held on 06/04/24. Instructions: Resume on 07/02/24. on hold by prescribing provider; follow up on when to resume mirtazapine 30 mg tablet (Remeron) 30 mg PO HS #0 tabs 02/09/17 06/02/24 paroxetine HCl 20 mg tablet (Paxil) 20 mg PO QAM #0 tabs 02/09/17 06/02/24 risperidone 2 mg tablet (Risperdal) 6 mg PO .QHS #0 tabs 02/09/17 06/02/24 trazodone 100 mg tablet 100 mg PO HS 03/10/18 06/02/24 Held on 06/04/24. Instructions: Resume on 07/02/24. Currently on hold; discuss with prescribing provider on when to resume amlodipine 5 mg tablet 5 mg PO .QHS 06/02/24 06/02/24 benztropine 1 mg tablet 1 mg PO BID 06/02/24 06/02/24 cetirizine 10 mg tablet 10 mg PO QHSPRN 06/02/24 06/02/24 dapagliflozin propaned 10 1 tab PO QDAY 06/02/24 06/02/24 mg-metformin ER 1,000 mg tablet,ext rel 24hr (Xigduo XR) meloxicam 15 mg tablet 15 mg PO QDAY 06/02/24 06/02/24 Held on 06/04/24. Instructions: Resume on 07/02/24. Hold until advised to resume by neurology or PCP, as you will be taking Aspirin and Plavix for 21 days quetiapine 25 mg tablet 25 mg PO .QHS 06/02/24 06/02/24 risperidone 2 mg tablet (Risperdal) 2 mg PO QAM 06/02/24 06/02/24 hydroxyzine HCl 50 mg tablet 50 mg PO BID 06/03/24 06/03/24 Previous Rx's ?Medication ?Instructions ?Recorded lorazepam 1 mg tablet (Ativan) 1 mg PO BID #2 tabs 12/21/18 Held on 06/04/24. Instructions: Resume on 07/02/24. on hold by prescribing provider; follow up on when to resume lorazepam 1 mg tablet (Ativan) 1 mg PO BID PRN anxiety #20 tabs 09/08/20 Held on 06/04/24. Instructions: Resume on 07/02/24. on hold by prescribing provider; follow up on when to resume atorvastatin 80 mg tablet 80 mg PO HS 30 days #30 tabs 06/04/24 clopidogrel 75 mg tablet 75 mg PO QDAY 30 days #30 tabs 06/04/24 Allergies Allergy/AdvReac Type Severity Reaction Status Date / Time No Known Allergies Allergy Verified 02/04/25 13:42 Review of Systems Review of Systems Systems Reviewed: All systems reviewed, normal except as documented Past Medical History Past Medical History NEUROLOGIC: Positive Cerebrovascular Accident (05/2024 LEFT SIDE DEFECITS) CARDIAC: Positive Hypertension ENDOCRINE: Positive Diabetes Mellitus Type 2 PSYCHO/SOCIAL: Positive Schizophrenia and Bipolar Disorder Social History SMOKING STATUS: Never smoker SUBSTANCE USE: does not use ED Exam Narrative Physical exam: Constitutional: Awake, alert, elderly male HEENT: Normocephalic, atraumatic, extraocular movements intact. Neck: Supple CV: Regular rate and rhythm, no murmurs/rubs/gallops Lungs: Clear to auscultation BL, no respiratory distress. Abd: Soft, NT, ND, no HSM noted to palpation Extremities: No deformities, no edema noted, souleymane to raise both legs though they appear weak, strength 4+/5 bilaterally Neuro: AAOx3, CN 2-12 GIBL, no acute neuro deficit noted. Skin: Warm, dry, intact Course Course Course Narrative: 1610h: Patient's workup is generally benign unremarkable CBC, CMP, CK, blood gas, urinalysis, lactate, magnesium, chest x-ray. Physical therapy consult was ordered in ED and they came to evaluate patient. Patient was able to stand and walk several paces in the room. Is persistently weak to left side since CVA earlier this year. No indication for inpatient admission at this time. Is able to follow-up outpatient for physical therapy. Stable for discharge. Does have a wheelchair and a walker at home. Quality Measures none Orders Category Date Time Status EKG (ED ONLY) *Do not use* NOW Care 02/04/25 14:39 Completed PT [Referral Physical Therapy] Stat Cons 02/04/25 14:39 Active EKG (ED Only) Stat Exams 02/04/25 14:39 Draft XR chest 1V portable Stat Exams 02/04/25 14:39 Completed Beta Hydroxybutyrate Stat Lab 02/04/25 14:52 Completed CBC Stat Lab 02/04/25 14:52 Completed CK [Creatine Kinase] Stat Lab 02/04/25 14:52 Completed CMP [Comprehensive Metabolic Panel] Stat Lab 02/04/25 14:52 Completed Lactate (Lactic Acid) Stat Lab 02/04/25 14:52 Completed Magnesium Stat Lab 02/04/25 14:52 Completed Urinalysis, C/S if Indicated Stat Lab 02/04/25 14:49 Completed VBG [Venous Blood Gas] Stat Lab 02/04/25 14:52 Completed Vital Signs Vital signs: Vital Signs Temperature 98.7 F 02/04/25 13:46 Pulse Rate 82 02/04/25 13:46 Respiratory Rate 18 02/04/25 13:46 Blood Pressure 146/83 H 02/04/25 13:46 Pulse Oximetry (%) 95 02/04/25 13:46 Oxygen Delivery Method Room Air 02/04/25 13:46 Pulse ox is 95% on room air which is adequate. Weakness MDM Narrative MDM Narrative:: Noreen Sparks, am scribing for and in the presence of Dr. Camilo. Patient data External records reviewed:: [facility] previous records and EMS form Clinical information provided by:: patient and EMS Social determinants that could affect healthcare access:: none Patient has the following chronic illnesses:: Parkinson's disease, CVA, hypertension, diabetes, bipolar disorder How is presenting disease/condition affected by chronic disease/condition?: exacerbated by Evaluation data The following diagnostics were reviewed and interpreted by me:: lab results, radiology exam(s) and EKG tracing(s) (EKG @ 14:54h, interpreted by me, normal sinus rhythm, rate 73, left axis deviation, no STEMI. ) Lab and/or radiology exams considered but not ordered:: None Interpretation Summary: Ordering Physician: Cherry Camilo MD Date of Service: 02/04/25 Procedure(s): XR chest 1V portable Accession Number(s): [id number] cc: Mino Avila MD; Cherry Camilo MD~ EXAMINATION: AP chest single view TECHNIQUE: AP portable upright chest single view Date and time: February 04, 2025, 1455 hours, comparison February 09, 2017 INDICATIONS: Weakness today. FINDINGS: Normal heart size Lungs are clear. Osseous structures are intact IMPRESSION: No active disease Dictated By: Mino Avila MD Signed By: <Electronically signed by Mino Avila MD in OV> 02/04/25 1504 Medications / Prescriptions Medications or Prescriptions considered but not ordered:: None Medication administrations:: none Consultations Consultation(s) initiated? (list below): No Diagnosis Weakness Differential Diagnosis: acute myocardial infarction, anemia, hypoglycemia, rhabdomyolysis, sepsis and dehydration Most likely diagnosis given after review of the tests above:: Leg weakness, h/o CVA Admission Indicated Admission indicated?: not indicated Admission Request Was there a request for admission?: No Disposition Plan Disposition Plan: Discharge Discharge Attestation Discharge Attestation: The patient and all family members were given an opportunity to ask questions and understood the discharge instructions. Discharge instructions specifically effects, indications for sooner follow up or return to the emergency department, and the expected course of current diagnosis. Patient condition: Stable Discharge Plan Plan Patient Disposition: HOME (Self Care) Patient condition on transfer: Stable Prescriptions/Referrals Prescriptions/Med Rec: No Action ibuprofen 800 MG tablet 800 mg PO Q8HR PRN (Reason: PAIN) Qty: 0 risperidone [Risperdal] 2 MG tablet 6 mg PO .QHS Qty: 0 paroxetine HCl [Paxil] 20 MG tablet 20 mg PO QAM Qty: 0 mirtazapine [Remeron] 30 MG tablet 30 mg PO HS Qty: 0 lorazepam 1 MG tablet 1 mg PO QDAY PRN (Reason: ANXIETY) Qty: 0 trazodone 100 mg Tablet 100 mg PO HS lorazepam [Ativan] 1 mg tablet 1 mg PO BID PRN (Reason: anxiety) Qty: 20 0RF lorazepam [Ativan] 1 mg tablet 1 mg PO BID Qty: 2 0RF amlodipine 5 mg tablet 5 mg PO .QHS quetiapine 25 mg tablet 25 mg PO .QHS Patient Comments: take 2 tablets by mouth at bedtime meloxicam 15 mg tablet 15 mg PO QDAY cetirizine 10 mg tablet 10 mg PO QHSPRN dapaglifloz propaned-metformin [Xigduo XR] 10-1,000 mg tablet, IR - ER, biphasic 24hr 1 tab PO QDAY risperidone [Risperdal] 2 mg tablet 2 mg PO QAM benztropine 1 mg tablet 1 mg PO BID Patient Comments: take 1 tablet by mouth twice a day hydroxyzine HCl 50 mg tablet 50 mg PO BID atorvastatin 80 mg tablet 80 mg PO HS 30 Days Qty: 30 1RF clopidogrel 75 mg Tablet 75 mg PO QDAY 30 Days Qty: 30 1RF Referrals: Physical Therapist,Generic [Physical Therapist, Physiatry] - In 1 week Problem List Clinical Impression: Muscle weakness of lower extremity Patient/Caregiver Discharge Instructions Discharge Activity: as per physical therapy and activity as tolerated Education Materials: ED Weakness (Uncertain Cause) Print Language: Latvian Stand Alone Forms: Elza Award Info., Patient Portal Info Letter
--- NOTE | 2025-02-04 14:39 | XR_ITS ---
EXAMINATION: AP chest single view TECHNIQUE: AP portable upright chest single view Date and time: February 04, 2025, 1455 hours, comparison February 09, 2017 INDICATIONS: Weakness today. FINDINGS: Normal heart size Lungs are clear. Osseous structures are intact IMPRESSION: No active disease
--- NOTE | 2025-02-04 14:39 | EKG_ITS ---
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1955 Requested By: Cherry Mclain Order Number: [id number] Reading MD: Cherry Mclain Measurements Intervals [place] Rate: 73 P: 44 NV: 158 QRS: -42 QRSD: 102 T: 31 QT: 376 QTc: 415 Interpretive Statements SINUS RHYTHM LEFT AXIS DEVIATION [QRS AXIS < -30] MODERATE VOLTAGE CRITERIA FOR LVH, CONSIDER NORMAL VARIANT [MEETS CRITERIA IN ONE OF: R(aVL), S(V1), R(V5), R(V5/V6)+S(V1)] POSSIBLE SEPTAL MYOCARDIAL INFARCTION , OF INDETERMINATE AGE [30 ms Q WAVE IN V1/V2] Compared to ECG 01/16/2025 17:09:28 Left-axis deviation now present Myocardial infarct finding now present Left anterior fascicular block no longer present T-wave abnormality no longer present /store/[id number].pdf
[2025-02-04 14:59] LABS: Collection Type, Urine Clean Catch; Squamous Epithelial Cell,Urine 0 /hpf (0-5)
[2025-02-04 15:00] LABS: Lactate (Lactic Acid) 1.8 mMol/L (0.4-2.0)
[2025-02-04 15:01] LABS: Base Excess, Venous 4 (-3-3); Basophils # (Auto) 0.0 Thou/mm3 (0.0-0.2); Basophils % (Auto) 1 % (0-2.5); Eosinophils # (Auto) 0.1 Thou/mm3 (0.0-0.5); Eosinophils % (Auto) 2 % (0-10); Hematocrit 42.3 % (41.0-53.0); Hemoglobin 14.4 g/dL (13.5-16.0); Immature Granulocytes Auto 0.02 Thou/mm3 (0.00-0.00); Lymphocytes # (Auto) 1.8 Thou/mm3 (1.0-4.8); Lymphocytes % (Auto) 31 % (10-50); Mean Corpuscular HGB Conc 34.0 g/dl (31.0-37.0); Mean Corpuscular Hemoglobin 30.5 pg (25.0-35.0); Mean Corpuscular Volume 90 fL (80-100); Monocytes # (Auto) 0.5 Thou/mm3 (0.0-0.8); Monocytes % (Auto) 9 % (0-12); Neutrophils # (Auto) 3.4 Thou/mm3 (1.8-7.7); Neutrophils % (Auto) 58 % (37-80); Nucleated Red Blood Cell # 0.00 Thou/mm3 (0.00-0.00); Nucleated Red Blood Cell % 0 /100 WBC (0); O2 Saturation, Venous 60 % (96-97); PCO2, Venous 47 mmHg (36-56); PO2, Venous 31 mmHg (15-58); Platelet Count 203 Thou/mm3 (140-440); RDW Standard Deviation 43.8 fL (35.1-43.9); Red Blood Count 4.72 Miln/mm3 (4.50-5.90); White Blood Count 5.9 Thou/mm3 (3.8-10.6); pH, Venous 7.41 (7.33-7.66)
[2025-02-04 15:04] LABS: Bilirubin,Urine Negative (Negative); Blood,Urine Negative (Negative); Clarity,Urine Clear (Clear/Hazy); Color,Urine Colorless (Lt Yel-Yel); Culture Indicated,Urine Not Indicated; Glucose, Urine 4+ (Negative); Ketones,Urine Negative (Negative); Leukocyte Esterase,Urine Negative (Negative); Nitrite,Urine Negative (Negative); PH,Urine 7.0 (5.0-7.0); Protein,Urine Negative (Neg - Trace); RBC,Urine 1 /hpf (0-3); Specific Gravity,Urine 1.003 (1.001-1.035); Urobilinogen,Urine Negative mg/dL (0.0-1.0); WBC,Urine < 1 /hpf (0-5)
[2025-02-04 15:07] LABS: Beta Hydroxybutyrate 0.1 mmol/L (<0.6)
[2025-02-04 15:25] LABS: Alanine Aminotransferase 22 U/L (10-49); Albumin, Serum 4.7 gm/dL (3.4-4.8); Albumin/Globulin Ratio 2.5 (1.2-2.2); Alkaline Phosphatase 65 U/L (46-116); Anion Gap 9 (7-16); Aspartate Amino Transferase 14 U/L (0-34); BUN/Creatinine Ratio 9 Ratio (12-20); Bilirubin,Total 0.4 mg/dL (0.3-1.2); Blood Urea Nitrogen 6 mg/dL (9-23); Calcium 9.0 mg/dL (8.3-10.6); Calcium (Corrected) 9.0 mg/dL (8.5-10.1); Carbon Dioxide 30.1 mMol/L (20.0-31.0); Chloride 99 mMol/L (98-107); Creatine Kinase 63 U/L (34-171); Creatinine (Component) 0.7 mg/dL (0.6-1.3); Estimated Creatinine Clearance 112.0 mL/min (>60); Globulin 1.9 gm/dL (2.3-3.5); Glucose 182 mg/dL (74-106); Magnesium 2.1 mg/dL (1.6-2.6); Osmolality,Calculated 278 (275-295); Potassium 4.0 mMol/L (3.4-5.1); Sodium 138 mMol/L (136-145); Total Protein 6.6 gm/dL (5.7-8.2); eGFR > 60 See Note
--- NOTE | 2025-02-04 16:42 | PC.PT ---
PT eval complete. Please see documentation for further details.
[2025-02-04 16:54] VITALS: BP 137/77; PULSE 79; RESP 19; TEMP 36.9; O2SAT 96
[2025-02-04 18:22] VITALS: BP 121/98; PULSE 94; RESP 17; TEMP 36.8; O2SAT 95
--- NOTE | 2025-02-04 18:32 | EDNOTE_ITS ---
Emergency Room Addendum Addendum Narrative: 1800: Care assumed from Dr. Camilo (emergency physician). Past medical, surgical, social and family history reviewed. Vitals and home medications reviewed. Results and treatment plan discussed. I will assume the care of the patient at this time and will follow the patient, pending consult with social services counselor in the morning. The following addendum documentation note is intended to reflect any pending information, findings, or radiology results not included in the patient?s initial chart by the previous shift scribe. 06:00 - Care assumed by Dr. Estrella (emergency physician). Past medical, surgical, social and family history reviewed. Vitals and home medications reviewed. Results and treatment plan discussed. They will assume the care of the patient at this time and will follow the patient, pending consult with social services counselor.
[2025-02-04 22:16] VITALS: BP 108/73; PULSE 74; RESP 17; TEMP 36.7; O2SAT 95
[2025-02-05] VITALS (8 sets, daily range): BP systolic 95–142; BP diastolic 57–81; PULSE 65–91; RESP 16–20; TEMP 36.4–37.1; O2SAT 93–100; BMI 10.8
--- NOTE | 2025-02-05 | XR_ITS ---
Examination: MRI of brain without intravenous contrast. MRI brain with intravenous contrast. Date and time of exam: February 05, 2025, 11:50 p.m. INDICATIONS: Left-sided facial numbness and weakness today Technique: Multiple axial and sagittal images of the brain to been obtained. Siemens high-resolution 1.52 Katia short bore scanner utilized. Sagittal sections, T1 weighted images, TR 500, TE 14, are performed. Axial sections proton-density and T2-weighted images have been obtained. Inversion recovery axial images, TR 9260, TE 111, TR 2500. Diffusion weighted images, axial sections, TR 4800, TE 128, B value 1000. Axial sections, ADC map, TR 4800, TE 128. Axial and coronal images were also obtained post 19 cc gadolinium administered intravenously. Findings:: Enlargement of the sella turcica is not present. The optic chiasm and infundibular stalk are not remarkable. There is no localized enlargement of the medulla or radha. Fourth ventricle and cerebellar tonsils appear normal in position. No subacute area of hemorrhage density is seen. Fourth ventricle is midline. Mass in the cerebellopontine angle region is not evident. 7th and 8th nerve complexes exhibit symmetry Globes are symmetrical Orbital musculature including medial lateral rectus muscles do not exhibit abnormality Increased white matter signal is moderate Effacement of the cortical sulcal markings is not identified. Mass effect upon the ventricular system is not identified. Diffusion-weighted images demonstrate no focus of restricted diffusion Contrast images demonstrate no abnormal cerebellar or cerebral enhancement Impression: Negative for acute hemorrhage mass effect or midline shift No acute infarct Moderate chronic microvascular white matter change
--- NOTE | 2025-02-05 07:52 | PC.SS ---
Addendum entered by Zoe Zimmer 02/05/25 10:58: SS follow up note; SS was informed by Dr. Estrella that patient will be admitted. SS followed up with patient and patient would like to discharge to [facility] when medically cleared. Patient's daughter, Margot aware that patient would like to discharge to [facility]. Original Note: SS follow up note; SS sent referral for acute rehab for patient through [employer].
--- NOTE | 2025-02-05 09:23 | EDNOTE_ITS ---
Emergency Room Addendum <Meme Yadav - Last Filed: 02/05/25 10:23> Addendum Narrative: 0600: Care assumed from Dr. Zavala, the previous shift emergency physician. Past medical, surgical, social and family history reviewed. Vitals and home medications reviewed. I will assume the care of the patient at this time, pending a social organization professor consultation. Please refer to the emergency department record for history and examination from initial visit.? At 10:00 AM, additional history obtained from daughter. Patient reports diffuse and bilateral generalized weakness for months, significantly worse over the past 5 days. He was previously seen in the ED for similar symptoms, had an MRI performed, and no acute findings were discovered. After that visit he fell, began physical therapy, and was able to walk again using a walker. As of yesterday he was unable to get up or move, prompting return to the ED. Past psychiatric history includes schizophrenia. He has been refusing his medications risperidone and mirtazapine for approximately one week. Current medication list includes proxitine, buspirone, clonazepam, atorvastatin, lisinopril, amlodipine, oxybutynin, Plavix, quetiapine, and pyridoxine. He also has a history of a prior stroke with chronic left-sided weakness. His neurologist is Dr. Clayton. Patient has been in the ED for over 20 hours. Yesterday?s day shift provider documented the following: patient with a history of hypertension, diabetes, and bipolar disorder presented for evaluation of bilateral arm and leg weakness. Over the previous 5 days he required a walker due to increasing weakness. Yesterday he noted he had no strength in his arms or legs to stand or walk. Prior to 5 days ago he ambulated independently without difficulty. Denied weight change, headache, or fevers, and reported increased urinary frequency over the last month. MDM: Patient with months of generalized weakness, significantly worse over 5 days, now unable to ambulate. Chronic left sided deficits from prior stroke. Recent medication noncompliance. Prior normal MRI. Workup continued for neurologic, metabolic, infectious, and medication related causes. Differential diagnoses include deconditioning, metabolic derangement, and progression of underlying neurologic disease. <Angeline Estrella MD - Last Filed: 02/05/25 13:04> Addendum Narrative: 0600: Care assumed from Dr. Zavala, the previous shift emergency physician. Past medical, surgical, social and family history reviewed. Vitals and home medications reviewed. I will assume the care of the patient at this time, pending a social organization professor consultation. Please refer to the emergency department record for history and examination from initial visit.? At 10:00 AM, additional history obtained from daughter. Patient reports diffuse and bilateral generalized weakness for months, significantly worse over the past 5 days. He was previously seen in the ED for similar symptoms, had a CT performed, and no acute findings were discovered. After that visit he fell, began physical therapy, and was able to walk again using a walker. As of yesterday he was unable to get up or move, prompting return to the ED. Past psychiatric history includes schizophrenia. He has been refusing his medications risperidone and mirtazapine for approximately one week. Current medication list includes proxitine, buspirone, clonazepam, atorvastatin, lisinopril, amlodipine, oxybutynin, Plavix, quetiapine, and pyridoxine. He also has a history of a prior stroke with chronic left-sided weakness. His cecile rologist is Dr. Clayton. Patient has been in the ED for over 20 hours. Yesterday?s day shift provider documented the following: patient with a history of hypertension, diabetes, and bipolar disorder presented for evaluation of bilateral arm and leg weakness. Over the previous 5 days he required a walker due to increasing weakness. Yesterday he noted he had no strength in his arms or legs to stand or walk. Prior to 5 days ago he ambulated independently without difficulty. Denied weight change, headache, or fevers, and reported increased urinary frequency over the last month. MDM: Patient with months of generalized weakness, significantly worse over 5 days, now unable to ambulate. Chronic left sided deficits from prior stroke. Recent medication noncompliance, has not taken his risperidone and mirtazapine. Given daughter's concerns that patient has had these episodes of diffuse weakness with spontaneous improvement, and today on my exam patient has weakness in all 4 extremities and numbness in all 4 extremities, we will continue patient's workup with a CT brain, neurology consult. Differential diagnoses include deconditioning, metabolic derangement, intracranial hemorrhage, and progression of underlying neurologic disease. Per chart review patient had a stroke in May, had MRA of the brain and neck vessels that showed a 10 mm acute infarct of the right basal ganglia and significant stenosis of P2 segment of the right posterior cerebral artery at the time. 10:13 discussed case with patient's neurologist Dr. Goyal agrees with head CT, recommends admission, MRI brain with and without contrast and will see patient as an inpatient. Updated patient's daughter, in agreement with treatment plan. CT brain without any acute abnormalities. Discussed case with hospitalist, kindly accepts patient for admission. Total critical care time: Approximately?36?minutes Due to a high probability of clinically significant, life threatening deterioration, the patient required my highest level of preparedness to intervene emergently and I personally spent this critical care time directly and personally managing the patient. This critical care time included obtai suresh a history; examining the patient; pulse oximetry; ordering and review of studies; arranging urgent treatment with development of a management plan; evaluation of patient's response to treatment; frequent reassessment; and, discussions with other providers. This critical care time was performed to assess and manage the high probability of imminent, life-threatening deterioration that could result in multi-organ failure. It was exclusive of separately billable procedures and treating other patients and teaching time. Please see MDM section and the rest of the note for further information on patient assessment and treatment. Physical Exam <Meme Yadav - Last Filed: 02/05/25 10:23> General Limitations: physical limitation General appearance: alert and in no apparent distress Head Head exam: atraumatic, normocephalic and normal inspection Eye Eye exam: Present normal appearance, PERRL and EOMI ENT ENT exam: Present normal exam Neck Neck exam: Present normal inspection Chest Chest inspection: Present normal inspection and symmetric chest wall rise Respiratory Respiratory exam: Present normal lung sounds bilaterally Cardiovascular Cardiovascular exam: Present regular rate and normal rhythm Abdominal Exam Abdominal exam: Present soft and normal bowel sounds Rectal Exam Rectal exam: Present deferred Extremities Exam Extremities exam: Present normal inspection (See neuro exam) Back Exam Back exam: Present normal inspection Neurological Exam Neurological exam: Present alert and oriented X3 Expanded Neurological Exam Motor strength - LUE: 4/5 (chronic) Motor strength - RUE: 5/5 Motor strength - LLE: 4/5 (chronic) Motor strength - RLE: 4/5 Psychiatric Psychiatric exam: Present normal affect Skin Skin exam: Present warm, dry and intact Critical Care Time <Meme Yadav - Last Filed: 02/05/25 10:23> Critical Care Time Critical Care Time: Yes Total Critical Care Time (min.): 45 Attestation: The high probability of sudden, clinically significant deterioration in the patient?s condition required the highest level of my preparedness to intervene urgently. The services I provided to this patient were to treat and/or prevent clinically significant deterioration. Services included the following: chart data review, reviewing nursing notes and/or old charts, documentation time, financial planning consultant collaboration regarding findings and treatment options, medication orders and management, direct patient care, vital sign assessments and ordering, interpreting and reviewing diagnostic studies and lab tests. Aggregate critical care time includes only time during which I was engaged in work directly related to the patient?s care, as described above, whether at bedside or elsewhere in the Emergency Department. It did not include time spent performing other reported procedures or the services of residents, students, nurses or physician assistants. Results <Meme Yadav - Last Filed: 02/05/25 10:23> Objective Laboratory: Laboratory Last Values WBC 5.9 Thou/mm3 (3.8-10.6) 02/04/25 14:52 RBC 4.72 Miln/mm3 (4.50-5.90) 02/04/25 14:52 Hgb 14.4 g/dL (13.5-16.0) 02/04/25 14:52 Hct 42.3 % (41.0-53.0) 02/04/25 14:52 MCV 90 fL (80-100) 02/04/25 14:52 MCH 30.5 pg (25.0-35.0) 02/04/25 14:52 MCHC 34.0 g/dl (31.0-37.0) 02/04/25 14:52 RDW Std Deviation 43.8 fL (35.1-43.9) 02/04/25 14:52 Plt Count 203 Thou/mm3 (140-440) 02/04/25 14:52 Neut % (Auto) 58 % (37-80) 02/04/25 14:52 Lymph % (Auto) 31 % (10-50) 02/04/25 14:52 Jennings % (Auto) 9 % (0-12) 02/04/25 14:52 Eos % (Auto) 2 % (0-10) 02/04/25 14:52 Baso % (Auto) 1 % (0-2.5) 02/04/25 14:52 Neut # (Auto) 3.4 Thou/mm3 (1.8-7.7) 02/04/25 14:52 Lymph # (Auto) 1.8 Thou/mm3 (1.0-4.8) 02/04/25 14:52 Jennings # (Auto) 0.5 Thou/mm3 (0.0-0.8) 02/04/25 14:52 Eos # (Auto) 0.1 Thou/mm3 (0.0-0.5) 02/04/25 14:52 Baso # (Auto) 0.0 Thou/mm3 (0.0-0.2) 02/04/25 14:52 Immature Gran # (Auto) 0.02 Thou/mm3 (0.00-0.00) H 02/04/25 14:52 Absolute Nucleated RBC 0.00 Thou/mm3 (0.00-0.00) 02/04/25 14:52 Immature Gran % 0 % (0-0) 02/04/25 14:52 Nucleated RBC % 0 /100 WBC (0) 02/04/25 14:52 VBG pH 7.41 (7.33-7.66) 02/04/25 14:52 VBG pCO2 47 mmHg (36-56) 02/04/25 14:52 VBG pO2 31 mmHg (15-58) 02/04/25 14:52 VBG O2 Sat (Mundo) 60 % (96-97) L 02/04/25 14:52 VBG Base Excess 4 (-3-3) H 02/04/25 14:52 Sodium 138 mMol/L (136-145) 02/04/25 14:52 Potassium 4.0 mMol/L (3.4-5.1) 02/04/25 14:52 Chloride 99 mMol/L (98-107) 02/04/25 14:52 Carbon Dioxide 30.1 mMol/L (20.0-31.0) 02/04/25 14:52 Anion Gap 9 (7-16) 02/04/25 14:52 BUN 6 mg/dL (9-23) L 02/04/25 14:52 Creatinine 0.7 mg/dL (0.6-1.3) 02/04/25 14:52 Estim Creat Clear Calc 112.0 mL/min (>60) 02/04/25 14:52 eGFR > 60 See Note (60-) 02/04/25 14:52 BUN/Creatinine Ratio 9 Ratio (12-20) L 02/04/25 14:52 Glucose 182 mg/dL (74-106) H 02/04/25 14:52 Calculated Osmolality 278 (275-295) 02/04/25 14:52 Lactic Acid 1.8 mMol/L (0.4-2.0) 02/04/25 14:52 Calcium 9.0 mg/dL (8.3-10.6) 02/04/25 14:52 Corrected Calcium 9.0 mg/dL (8.5-10.1) 02/04/25 14:52 Magnesium 2.1 mg/dL (1.6-2.6) 02/04/25 14:52 Total Bilirubin 0.4 mg/dL (0.3-1.2) 02/04/25 14:52 AST 14 U/L (0-34) 02/04/25 14:52 ALT 22 U/L (10-49) 02/04/25 14:52 Alkaline Phosphatase 65 U/L (46-116) 02/04/25 14:52 Total Creatine Kinase 63 U/L (34-171) 02/04/25 14:52 Total Protein 6.6 gm/dL (5.7-8.2) 02/04/25 14:52 Albumin 4.7 gm/dL (3.4-4.8) 02/04/25 14:52 Globulin 1.9 gm/dL (2.3-3.5) L 02/04/25 14:52 Albumin/Globulin Ratio 2.5 (1.2-2.2) H 02/04/25 14:52 Beta-Hydroxybutyrate/Acetoacetate 0.1 mmol/L (<0.6) 02/04/25 14:52 Ur Collection Type Clean Catch 02/04/25 14:49 Urine Color Colorless (Lt Yel-Yel) A 02/04/25 14:49 Urine Clarity Clear (Clear/Hazy) 02/04/25 14:49 Urine pH 7.0 (5.0-7.0) 02/04/25 14:49 Ur Specific [place] 1.003 (1.001-1.035) 02/04/25 14:49 Urine Protein Negative (Neg - Trace) 02/04/25 14:49 Urine Glucose (UA) 4+ (Negative) A 02/04/25 14:49 Urine Ketones Negative (Negative) 02/04/25 14:49 Urine Blood Negative (Negative) 02/04/25 14:49 Urine Nitrite Negative (Negative) 02/04/25 14:49 Urine Bilirubin Negative (Negative) 02/04/25 14:49 Urine Urobilinogen (Auto) Negative mg/dL (0.0-1.0) 02/04/25 14:49 Ur Leukocyte Esterase Negative (Negative) 02/04/25 14:49 Urine RBC 1 /hpf (0-3) 02/04/25 14:49 Urine WBC < 1 /hpf (0-5) 02/04/25 14:49 Ur Squamous Epith Cells 0 /hpf (0-5) 02/04/25 14:49 Urine Bacteria None (None) 02/04/25 14:49 Ur Culture Indicated? Not Indicated 02/04/25 14:49 Imaging: Procedure(s): XR chest 1V portable Accession Number(s): [id number] cc: Mino Avila MD; Cherry Camilo MD~ EXAMINATION: AP chest single view TECHNIQUE: AP portable upright chest single view Date and time: February 04, 2025, 1455 hours, comparison February 09, 2017 INDICATIONS: Weakness today. FINDINGS: Normal heart size Lungs are clear. Osseous structures are intact IMPRESSION: No active disease Dictated By: Mino Avila MD <Angeline Estrella MD - Last Filed: 02/05/25 13:04> Objective Laboratory: Laboratory Last Values WBC 5.9 Thou/mm3 (3.8-10.6) 02/04/25 14:52 RBC 4.72 Miln/mm3 (4.50-5.90) 02/04/25 14:52 Hgb 14.4 g/dL (13.5-16.0) 02/04/25 14:52 Hct 42.3 % (41.0-53.0) 02/04/25 14:52 MCV 90 fL (80-100) 02/04/25 14:52 MCH 30.5 pg (25.0-35.0) 02/04/25 14:52 MCHC 34.0 g/dl (31.0-37.0) 02/04/25 14:52 RDW Std Deviation 43.8 fL (35.1-43.9) 02/04/25 14:52 Plt Count 203 Thou/mm3 (140-440) 02/04/25 14:52 Neut % (Auto) 58 % (37-80) 02/04/25 14:52 Lymph % (Auto) 31 % (10-50) 02/04/25 14:52 Jennings % (Auto) 9 % (0-12) 02/04/25 14:52 Eos % (Auto) 2 % (0-10) 02/04/25 14:52 Baso % (Auto) 1 % (0-2.5) 02/04/25 14:52 Neut # (Auto) 3.4 Thou/mm3 (1.8-7.7) 02/04/25 14:52 Lymph # (Auto) 1.8 Thou/mm3 (1.0-4.8) 02/04/25 14:52 Jennings # (Auto) 0.5 Thou/mm3 (0.0-0.8) 02/04/25 14:52 Eos # (Auto) 0.1 Thou/mm3 (0.0-0.5) 02/04/25 14:52 Baso # (Auto) 0.0 Thou/mm3 (0.0-0.2) 02/04/25 14:52 Immature Gran # (Auto) 0.02 Thou/mm3 (0.00-0.00) H 02/04/25 14:52 Absolute Nucleated RBC 0.00 Thou/mm3 (0.00-0.00) 02/04/25 14:52 Immature Gran % 0 % (0-0) 02/04/25 14:52 Nucleated RBC % 0 /100 WBC (0) 02/04/25 14:52 VBG pH 7.41 (7.33-7.66) 02/04/25 14:52 VBG pCO2 47 mmHg (36-56) 02/04/25 14:52 VBG pO2 31 mmHg (15-58) 02/04/25 14:52 VBG O2 Sat (Mundo) 60 % (96-97) L 02/04/25 14:52 VBG Base Excess 4 (-3-3) H 02/04/25 14:52 Sodium 138 mMol/L (136-145) 02/04/25 14:52 Potassium 4.0 mMol/L (3.4-5.1) 02/04/25 14:52 Chloride 99 mMol/L (98-107) 02/04/25 14:52 Carbon Dioxide 30.1 mMol/L (20.0-31.0) 02/04/25 14:52 Anion Gap 9 (7-16) 02/04/25 14:52 BUN 6 mg/dL (9-23) L 02/04/25 14:52 Creatinine 0.7 mg/dL (0.6-1.3) 02/04/25 14:52 Estim Creat Clear Calc 112.0 mL/min (>60) 02/04/25 14:52 eGFR > 60 See Note (60-) 02/04/25 14:52 BUN/Creatinine Ratio 9 Ratio (12-20) L 02/04/25 14:52 Glucose 182 mg/dL (74-106) H 02/04/25 14:52 Calculated Osmolality 278 (275-295) 02/04/25 14:52 Lactic Acid 1.8 mMol/L (0.4-2.0) 02/04/25 14:52 Calcium 9.0 mg/dL (8.3-10.6) 02/04/25 14:52 Corrected Calcium 9.0 mg/dL (8.5-10.1) 02/04/25 14:52 Magnesium 2.1 mg/dL (1.6-2.6) 02/04/25 14:52 Total Bilirubin 0.4 mg/dL (0.3-1.2) 02/04/25 14:52 AST 14 U/L (0-34) 02/04/25 14:52 ALT 22 U/L (10-49) 02/04/25 14:52 Alkaline Phosphatase 65 U/L (46-116) 02/04/25 14:52 Total Creatine Kinase 63 U/L (34-171) 02/04/25 14:52 Total Protein 6.6 gm/dL (5.7-8.2) 02/04/25 14:52 Albumin 4.7 gm/dL (3.4-4.8) 02/04/25 14:52 Globulin 1.9 gm/dL (2.3-3.5) L 02/04/25 14:52 Albumin/Globulin Ratio 2.5 (1.2-2.2) H 02/04/25 14:52 Beta-Hydroxybutyrate/Acetoacetate 0.1 mmol/L (<0.6) 02/04/25 14:52 Ur Collection Type Clean Catch 02/04/25 14:49 Urine Color Colorless (Lt Yel-Yel) A 02/04/25 14:49 Urine Clarity Clear (Clear/Hazy) 02/04/25 14:49 Urine pH 7.0 (5.0-7.0) 02/04/25 14:49 Ur Specific [place] 1.003 (1.001-1.035) 02/04/25 14:49 Urine Protein Negative (Neg - Trace) 02/04/25 14:49 Urine Glucose (UA) 4+ (Negative) A 02/04/25 14:49 Urine Ketones Negative (Negative) 02/04/25 14:49 Urine Blood Negative (Negative) 02/04/25 14:49 Urine Nitrite Negative (Negative) 02/04/25 14:49 Urine Bilirubin Negative (Negative) 02/04/25 14:49 Urine Urobilinogen (Auto) Negative mg/dL (0.0-1.0) 02/04/25 14:49 Ur Leukocyte Esterase Negative (Negative) 02/04/25 14:49 Urine RBC 1 /hpf (0-3) 02/04/25 14:49 Urine WBC < 1 /hpf (0-5) 02/04/25 14:49 Ur Squamous Epith Cells 0 /hpf (0-5) 02/04/25 14:49 Urine Bacteria None (None) 02/04/25 14:49 Ur Culture Indicated? Not Indicated 02/04/25 14:49
--- NOTE | 2025-02-05 09:55 | XR_ITS ---
Examination: CT brain head without contrast. 2-D sagittal coronal reconstructions Date and time of exam: February 05, 2025, 10:46 a.m. INDICATIONS: Extreme weakness altered mental status today CTDI: vol (mGy): 56 DLP: (mGycm): 1100 Technique: Multiple CT axial sections of the brain have been obtained, 5 mm slice thickness. Contrast has not been administered. 2-D sagittal, coronal reconstructions have been obtained Low dose protocols were performed. One or more of the following dose reduction techniques were used; automated exposure control, adjustment of the mA and/or KV according to patient size, use of iterative reconstruction technique. Findings: No significant ventricular enlargement. Intra-axial or extra-axial hemorrhage density is not seen. No mass effect or midline shift Basal cisterns are not remarkable. Fourth ventricle is midline. Cranial vault intact. Impression: Negative for acute hemorrhage, mass effect or midline shift Advise clinical correlation and follow-up accordingly
--- NOTE | 2025-02-05 10:03 | PC.NURSE ---
Pt came BIBA for severe weakness to all 4 extremities. Pt is A&O x4 stated the weakness started about a month ago and was seen by his primary doctor that did not give anything, when he went home he became weak were he had a level ground fall. Currently pt does not present with any facial droop, or speaking problems. He does report that he does become incontinent. He stated that 2 of his medications were taken away by his primary MD for unknown reason.
--- NOTE | 2025-02-05 13:57 | ESHP_ITS ---
<Statement entered by Benjy Alvarado MD - 02/05/25 17:55> Patient seen and examined at bedside. I discussed and supervised with the journalism internship physician who took care of this patient. I personally saw and examined the patient. I agree with most of the assessment and plan. Plan of care discussed with attending Dr. Davidson. Benjy Alvarado MD PGY-2 Documentation for date of: 02/05/25 HPI History of Present Illness History of present illness: History of Present Illness: Ag Khan, 69 y/o M with PMH of prior hx of stroke, schizophrenia, HTN, DM, bipolar disorder, presented ot the ED on 02/04/2025, due to progressive generalized weakness and numbness involving both hands and feet for last 5 days. He reported increased difficulty with ambulation and standing. He also noted persistent left sided weakness in the upper and lower extremities secondary to his previous stroke. Initial evaluation in the ED included CT head and MRI brain both of which were negative for acute findings, effectively ruling out a new stroke. Neurology was consulted and recommended admission for observation of his generalized weakness as well as assessment by physical therapy to determine his current functional status and evaluate his ability to ambulate safely and independently. ED course: Vitals: 98.7 F, CO 82, RR 18, BP 146/83, 95% O2 saturation on room air. Labs: WBC 5.9, Hgb 14.4, sodium 138, potassium 4.0, creatinine 0.7, glucose 182 CXR (02/04/2025): No active disease Head CT (02/04/2025): Negative for acute hemorrhage, mass effect or midline shift Brain MRI (02/05/2025): Negative for acute hemorrhage mass effect or midline shift, No acute infarct, Moderate chronic microvascular white matter change Medical history: As stated above Surgical history: Denies Allergies: NKDA Medications: Pending official med rec Family history: Noncontributory Social history: Alcohol: Last drink was 35 years ago, Tobacco: Smoked for 40 years stopped smoking 5 years ago. Illicit drugs: Remote history of cocaine abuse 35 years ago. Review of Systems Review of Systems Narrative Review of Systems: All 12 systems assessed and the patient denies unless otherwise stated in HPI Exam Vital Signs Temp Pulse Resp BP Pulse Ox O2 Del Method 98.3 F 75 20 132/81 H 96 Room Air 02/05/25 11:02/05/25 11:02/05/25 11:02/05/25 11:02/05/25 11:02/05/25 11:22 Narrative Exam General: Well nourished, AAO x3 Eye: Normal conjunctiva, no scleral icterus HENT: Normocephalic, atraumatic, hearing intact to conversation at normal volume, moist oral mucosa Neck: Supple, non-tender, no JVD, no lymphadenopathy Lungs: Non-labored respirations, symmetric chest rise, Clear to auscultate bilaterally, No wheezing, rhonchi, crackles Heart: Peripheral pulses intact bilaterally, Regular Rate and Rhythm. Abdomen: Soft, non-tender, non-distended, no palpable masses Musculoskeletal: Normal range of motion and strength, No cyanosis or edema, No visible joint swelling Skin: Skin is warm, dry, no rashes or lesions. Psychiatric: Cooperative, appropriate mood and affect, Awake and alert, not agitated Neuro: Cranial nerves II-XII grossly intact. Strength 3/5 throughout. Sensations decreased in bilateral hands and feet to light touch. Results: Labs 02/04/25 14:52 02/04/25 14:52 Labs: Short CBC 02/04/25 Range/Units 14:52 WBC 5.9 (3.8-10.6) Thou/mm3 Hgb 14.4 (13.5-16.0) g/dL Hct 42.3 (41.0-53.0) % Plt Count 203 (140-440) Thou/mm3 [facility] 02/04/25 14:52 Sodium 138 Potassium 4.0 Chloride 99 Carbon Dioxide 30.1 BUN 6 L Creatinine 0.7 Glucose 182 H Calcium 9.0 Cardiac Enzymes 02/04/25 Range/Units 14:52 Total Creatine Kinase 63 (34-171) U/L Liver Function 02/04/25 Range/Units 14:52 Total Bilirubin 0.4 (0.3-1.2) mg/dL AST 14 (0-34) U/L ALT 22 (10-49) U/L Alkaline Phosphatase 65 (46-116) U/L Albumin 4.7 (3.4-4.8) gm/dL Urine 02/04/25 Range/Units 14:49 Urine Color Colorless A (Lt Yel-Yel) Urine Clarity Clear (Clear/Hazy) Urine pH 7.0 (5.0-7.0) Ur Specific [place] 1.003 (1.001-1.035) Urine Protein Negative (Neg - Trace) Urine Glucose (UA) 4+ A (Negative) ABG Interpretation ABG results: 02/04/25 14:52 VBG pH 7.41 VBG pCO2 47 VBG pO2 31 VBG Base Excess 4 H Quality Measures Quality Measures none Advance care planning discussed with:: patient and other Medications Home Medications and Allergies Home Medications ?Medication ?Instructions ?Recorded ?Confirmed ?Type ibuprofen 800 mg tablet 800 mg PO Q8HR PRN PAIN #0 t abs 02/09/17 06/02/24 History Held on 06/04/24. Instructions: Resume on 07/02/24. Hold until advised to resume by neurology or PCP, as you will be taking aspirin and plavix for 21 days lorazepam 1 mg tablet 1 mg PO QDAY PRN ANXIETY #0 tabs 02/09/17 06/02/24 History Held on 06/04/24. Instructions: Resume on 07/02/24. on hold by prescribing provider; follow up on when to resume mirtazapine 30 mg tablet (Remeron) 30 mg PO HS #0 tabs 02/09/17 06/02/24 History paroxetine HCl 20 mg tablet (Paxil) 20 mg PO QAM #0 ta bs 02/09/17 06/02/24 History risperidone 2 mg tablet (Risperdal) 6 mg PO .QHS #0 ta bs 02/09/17 06/02/24 History trazodone 100 mg tablet 100 mg PO HS 03/10/18 History Held on 06/04/24. Instructions: Resume on 07/02/24. Currently on hold; discuss with prescribing provider on when to resume amlodipine 5 mg tablet 5 mg PO .QHS 06/02/24 History benztropine 1 mg tablet 1 mg PO BID 06/02/24 5 History cetirizine 10 mg tablet 10 mg PO QHSPRN 06/02/24 History dapagliflozin propaned 10 1 tab PO QDAY 06/02/2406/02 History mg-metformin ER 1,000 mg tablet,ext rel 24hr (Xigduo XR) meloxicam 15 mg tablet 15 mg PO QDAY 06/02/2406/02 History Held on 06/04/24. Instructions: Resume on 07/02/24. Hold until advised to resume by neurology or PCP, as you will be taking Aspirin and Plavix for 21 days quetiapine 25 mg tablet 25 mg PO .QHS 06/02/2406/02 History risperidone 2 mg tablet (Risperdal) 2 mg PO QAM 06/02/24 History hydroxyzine HCl 50 mg tablet 50 mg PO BID 06/03/24 History Allergies Allergy/AdvReac Type Severity Reaction Status Date / Time No Known Allergies Allergy Verified 02/04/25 13:42 Assessment & Plan Plan Dm Khanolfo, 69 y/o M with PMH of prior hx of stroke, schizophrenia, HTN, DM, bipolar disorder, presented to the ED on 02/04/2025, due to progressive numbness involving both hands and feet for last 5 days. Patient was admitted for observation of his generalized weakness as well as assessment by physical therapy to determine his current functional status and evaluate his ability to ambulate safely and independently. #Generalized Weakness #Hx of prior stroke, Left arm and leg weakness -Progressive numbness involving both hands and feet for last 5 days. -History of prior stroke leading to chronic left arm and leg weakness and numbness -CXR (02/04/2025): No active disease -Head CT (02/04/2025): Negative for acute hemorrhage, mass effect or midline shift -Brain MRI (02/05/2025): Negative for acute hemorrhage mass effect or midline shift, No acute infarct, Moderate chronic microvascular white matter change -Neurology, Dr. Clayton, recommended admission for observation of his generalized weakness as well as assessment by physical therapy to determine his current functional status and evaluate his ability to ambulate safely and independently. Plan: -Consulted Neurology, Dr. Clayton, appreciate recommendations -Referral, physical therapy -Follow up daily labs. #Hypertension -Med rec pending #DM -Hba1c (06/03/2024): 6.7 -Hba1c pending -on SSI #Hx of Schizophrenia #Hx of bipolar disorder -Med rec pending Disposition: Med surg Diet: Cardiac diet GI prophylaxis: Not indicated DVT prophylaxis: SCD Code:FULL Assessment and plan discussed with my attending physician Dr. Davidson and Dr. Alvarado (PGY-2) Dr. Gates (PGY-1) - Internal medicine resident Attending Provider Attestation/Addendum I have seen and examined the patient. I was physically present for the villatoro portions of the services provided including history, physical exam, diagnosis, treatment plans and orders. I agree with assessment and plan of care as documented by residents. After examination of the patient and review of the clinical data I feel that this patient needs observation in the hospital for further treatment/evaluation. Even though this note was carefully revised there may still be minor errors in document processor due to voice recognition software. Heike Davidson MD
--- NOTE | 2025-02-05 19:30 | PC.NURSE ---
MD Clayton came and seen and examined the pt.
[2025-02-05] MEDS: ATORVASTATIN CALCIUM 20 MG TABLET 40 MG PO (20:40)
--- NOTE | 2025-02-05 22:29 | PD.NEUROCONS ---
History of Present Illness Data of Consult Requesting Physician: Benja Gates DO Primary Care Provider: Rohini Driver Consult Narrative History of present illness: Ag Khan, 69 y/o M with PMH of prior hx of stroke with residual left hemiparesis, schizophrenia, HTN, DM, bipolar disorder, presented ot the ER on 02/04/2025, due to progressive generalized weakness and numbness involving both hands and feet for last 5 days. He reported increased difficulty with ambulation and standing. He also noted persistent left sided weakness in the upper and lower extremities secondary to his previous stroke. Initial evaluation in the ED included CT head and MRI brain both of which were negative for acute findings, effectively ruling out a new stroke. Neurology was consulted and recommended admission for observation of his generalized weakness as well as assessment by physical therapy to determine his current functional status and evaluate his ability to ambulate safely and independently. ED course: Vitals: 98.7 F, SD 82, RR 18, BP 146/83, 95% O2 saturation on room air. Labs: WBC 5.9, Hgb 14.4, sodium 138, potassium 4.0, creatinine 0.7, glucose 182 CXR (02/04/2025): No active disease Head CT (02/04/2025): Negative for acute hemorrhage, mass effect or midline shift Brain MRI (02/05/2025): Negative for acute hemorrhage mass effect or midline shift, No acute infarct, Moderate chronic microvascular white matter change cc:: cc: Benja Gates DO Review of Systems Review of Systems ROS Unobtainable: unobtainable due to medical condition Past Medical History Past Medical History NEUROLOGIC: Positive Cerebrovascular Accident (05/2024 LEFT SIDE DEFECITS) CARDIAC: Positive Hypertension ENDOCRINE: Positive Diabetes Mellitus Type 2 PSYCHO/SOCIAL: Positive Schizophrenia and Bipolar Disorder Social History SMOKING STATUS: Never smoker SUBSTANCE USE: does not use Meds Home Medications and Allergies Home Medications ?Medication ?Instructions ?Recorded ?Confirmed ?Type ibuprofen 800 mg tablet 800 mg PO Q8HR PRN PAIN #0 tabs 02/09/17 02/05/25 History Held on 06/04/24. Instructions: Resume on 07/02/24. Hold until advised to resume by neurology or PCP, as you will be taking aspirin and plavix for 21 days lorazepam 1 mg tablet 1 mg PO QDAY PRN ANXIETY #0 tabs 02/09/17 02/05/25 History Held on 06/04/24. Instructions: Resume on 07/02/24. on hold by prescribing provider; follow up on when to resume mirtazapine 30 mg tablet (Remeron) 30 mg PO HS #0 tabs 02/09/17 02/05/25 History paroxetine HCl 20 mg tablet (Paxil) 20 mg PO QAM #0 tabs 02/09/17 02/05/25 History risperidone 2 mg tablet (Risperdal) 6 mg PO .QHS #0 tabs 02/09/17 02/05/25 History trazodone 100 mg tablet 100 mg PO HS 03/10/18 02/05/25 History Held on 06/04/24. Instructions: Resume on 07/02/24. Currently on hold; discuss with prescribing provider on when to resume amlodipine 5 mg tablet 5 mg PO .QHS 06/02/24 02/05/25 History quetiapine 25 mg tablet 25 mg PO .QHS 06/02/24 02/05/25 History atorvastatin 80 mg tablet 40 mg PO HS 02/05/25 02/05/25 History buspirone 5 mg tablet 5 mg PO BID 02/05/25 02/05/25 History clonazepam 0.5 mg tablet (Klonopin) 0.5 mg PO BID 02/05/25 02/05/25 History lisinopril 20 mg tablet 20 mg PO QDAY 02/05/25 02/05/25 History oxybutynin chloride 5 mg tablet 5 mg PO QDAY 02/05/25 02/05/25 History Allergies Allergy/AdvReac Type Severity Reaction Status Date / Time No Known Allergies Allergy Verified 02/04/25 13:42 Exam - Neurology Vital Signs Temp Pulse Resp BP Pulse Ox O2 Del Method 98.1 F 80 18 122/72 94 L Room Air 02/05/25 20:00 02/05/25 20:00 02/05/25 20:00 02/05/25 20:00 02/05/25 20:00 02/05/25 20:00 Narrative Exam GENERAL APPEARANCE: Well hydrated, well-nourished in no acute distress. HEENT: Normocephalic, atraumatic, extraocular movements intact. Pupils: Equal reacting to light and accommodation NECK: Supple, no JVD or bruits. CARDIOVASULAR: Heart: S1, S2 heard, regular without S3-S4 or murmur no rubs or gallops. LUNGS/CHEST: Clear to auscultation bilaterally. No rails, rhonchi, or wheezing. Normal inspection. ABDOMEN: Soft, nontender, with normal bowel sounds. No pulsatile masses. No rebound, rigidity, or guarding. Normal inspection and palpation. EXTREMITIES: Normal inspection and palpation. No edema, clubbing or cyanosis. SKIN: Warm and dry without rashes. Normal inspection. MUSCULOSKELETAL: No cervical, thoracic, lumbar or midline bony tenderness. Normal inspection. NEURO: Alert, awake and oriented x3. Cranial nerves: II through XII grossly intact. Speech and language: Normal with no dysarthria or dysphasia. Motor system: Tone and bulk: Normal: Strength: Subtle residual left hemiparesis. No pronator drift noted. Deep tendon reflexes: 2+ bilaterally symmetrical. Plantar reflex: Downgoing bilaterally. Sensory system: Intact to all modalities of sensation bilaterally. Coordination: Intact to [id number] and [id number] test bilaterally. No ataxia, no dysmetria, or dysdiadochokinesia noted. No intention tremors noted. Gait: Was able to walk with the physical therapist using the walker. No signs of meningeal irritation noted. PSYCHIATRIC: Normal mood and affect. Results Labs 02/04/25 14:52 02/04/25 14:52 ABG Interpretation ABG results: 02/04/25 14:52 VBG pH 7.41 VBG pCO2 47 VBG pO2 31 VBG Base Excess 4 H Assessment & Plan Assessment and plan (1) Muscle weakness of lower extremity: Status: Acute Assessment and plan: Improved, MRI brain did not show any acute infarction. Reassurance given to the patient. Patient is stable from neurologist point for discharge home tomorrow. Advised him to keep using the walker. Consider checking vitamin D level, B12 and A1c (2) CVA, old, hemiparesis: Status: Chronic
[2025-02-06 04:00] VITALS: BP 122/75; PULSE 69; RESP 18; TEMP 36.7; O2SAT 95
[2025-02-06 05:48] LABS: Basophils # (Auto) 0.1 Thou/mm3 (0.0-0.2); Basophils % (Auto) 1 % (0-2.5); Eosinophils # (Auto) 0.2 Thou/mm3 (0.0-0.5); Eosinophils % (Auto) 2 % (0-10); Hematocrit 44.2 % (41.0-53.0); Hemoglobin 15.1 g/dL (13.5-16.0); Immature Granulocytes Auto 0.02 Thou/mm3 (0.00-0.00); Lymphocytes # (Auto) 3.0 Thou/mm3 (1.0-4.8); Lymphocytes % (Auto) 35 % (10-50); Mean Corpuscular HGB Conc 34.2 g/dl (31.0-37.0); Mean Corpuscular Hemoglobin 30.9 pg (25.0-35.0); Mean Corpuscular Volume 90 fL (80-100); Monocytes # (Auto) 0.9 Thou/mm3 (0.0-0.8); Monocytes % (Auto) 11 % (0-12); Neutrophils # (Auto) 4.6 Thou/mm3 (1.8-7.7); Neutrophils % (Auto) 52 % (37-80); Nucleated Red Blood Cell # 0.00 Thou/mm3 (0.00-0.00); Nucleated Red Blood Cell % 0 /100 WBC (0); Platelet Count 200 Thou/mm3 (140-440); RDW Standard Deviation 45.0 fL (35.1-43.9); Red Blood Count 4.89 Miln/mm3 (4.50-5.90); White Blood Count 8.7 Thou/mm3 (3.8-10.6)
[2025-02-06 06:17] LABS: Alanine Aminotransferase 24 U/L (10-49); Albumin, Serum 4.6 gm/dL (3.4-4.8); Albumin/Globulin Ratio 2.2 (1.2-2.2); Alkaline Phosphatase 68 U/L (46-116); Anion Gap 10 (7-16); Aspartate Amino Transferase 12 U/L (0-34); BUN/Creatinine Ratio 11 Ratio (12-20); Bilirubin,Total 0.7 mg/dL (0.3-1.2); Blood Urea Nitrogen 9 mg/dL (9-23); Calcium 9.1 mg/dL (8.3-10.6); Calcium (Corrected) 9.1 mg/dL (8.5-10.1); Carbon Dioxide 28.6 mMol/L (20.0-31.0); Chloride 101 mMol/L (98-107); Creatinine (Component) 0.8 mg/dL (0.6-1.3); Estimated Creatinine Clearance 96.3 mL/min (>60); Globulin 2.1 gm/dL (2.3-3.5); Glucose 145 mg/dL (74-106); Magnesium 1.9 mg/dL (1.6-2.6); Osmolality,Calculated 281 (275-295); Phosphorous 4.6 mg/dL (2.4-5.1); Potassium 4.2 mMol/L (3.4-5.1); Sodium 140 mMol/L (136-145); Total Protein 6.7 gm/dL (5.7-8.2); eGFR > 60 See Note
[2025-02-06 06:21] LABS: Glucose Estimated Average 157 mg/dL (80-131); Hemoglobin A1C 7.1 % Hgb (4.8-6.0)
[2025-02-06 08:00] VITALS: BP 125/74; PULSE 75; RESP 16; TEMP 36.4; O2SAT 97
[2025-02-06] MEDS: CLOPIDOGREL BISULFATE 75 MG TABLET PO (08:21)
--- NOTE | 2025-02-06 10:24 | PC.SS ---
Addendum entered by SARWAT Saini 02/06/25 15:43: Per UR department, [place], patient does not meet inpatient criteria because MRI negative, Labs WNL, VS stable, A/O Dr. Clayton cleared for dc home today (per 02/05 note) and PT cleared him for home with OP PT. Addendum entered by SARWAT Saini 02/06/25 14:44: Rounding: patient declined [facility] placement, ASW notified doctors that patient declined [facility] and would like [facility] instead, patient will need to be inpatient and meet three midnight stay for [facility]. Addendum entered by SARWAT Saini 02/06/25 12:06: ASW received phone call from [facility] who stated that they are able to take patient without the three midnight stay since they are short term rehab, ASW spoke to patient at bedside to inquire if he would like to discharge to [facility] patient stated no that he would like to go to [facility]. Addendum entered by SARWAT Saini 02/06/25 10:27: ASW emailed UR Team to inquire if patient meets criteria for inpatient stay, pending response. Original Note: Patient is a 69 year old male presenting to the hospital for generalized weakness. ASW made face to face contact with patient at bedside. ASW introduced self, role, and reason for visit. Patient confirmed demographic information. Patient stated that he lives at home at address on face sheet with his friend. Patient stated that he has a walker with a cushion and a two point walker and wheel chair at home that he uses to complete ADL?S. Patient stated that once he is medically clear he would like to d/c to [facility]. ASW informed patient that he is on observation and would need three qualifying midnights in order to insurance to cover cost. Patient confirmed understanding. Patients PCP is Dr. Rohini Driver last appointment was 02/03/25. His pharmacy of choice is [facility]. Patient stated that in case is unable to make medical decisions on his own he would like his daughter Margot Ortiz to make them PH: [phone]. D/C: [facility] PCP: Dr. Rohini Driver Decision maker: Margot Ortiz PH: [phone].
[2025-02-06 11:47] VITALS: BP 127/85; PULSE 87; RESP 16; TEMP 36.8; O2SAT 93
[2025-02-06] MEDS: ACETAMINOPHEN 325 MG TABLET 650 MG PO ×2 (12:21→21:59)
--- NOTE | 2025-02-06 14:01 | ESPR_ITS ---
<Statement entered by Benjy Alvarado MD - 02/06/25 17:54> Patient seen and examined at bedside. I discussed and supervised with the sales and marketing intern physician who took care of this patient. I personally saw and examined the patient. I agree with most of the assessment and plan. Plan of care discussed with attending Dr. Davidson. Benjy Alvarado MD PGY-2 Documentation for date of: 02/06/25 Subjective Subjective Interval history: Patient was seen and examined at bedside. No acute events took place overnight. Patient states that he felt so weak 2 days ago when trying to stand from sitting that he could not maintain his balance and fell. Denies headaches, chest pain, shortness of breath, abdominal pain, urinary symptoms. Exam Vital Signs Temp Pulse Resp BP Pulse Ox O2 Del Method 98.2 F 87 16 127/85 H 93 L Room Air 02/06/25 11:47 02/06/25 11:47 02/06/25 11:47 02/06/25 11:47 02/06/25 11:47 02/06/25 11:47 Narrative Exam General: Well nourished, AAO x3 Eye: Normal conjunctiva, no scleral icterus HENT: Normocephalic, atraumatic, hearing intact to conversation at normal volume, moist oral mucosa Neck: Supple, non-tender, no JVD, no lymphadenopathy Lungs: Non-labored respirations, symmetric chest rise, Clear to auscultate bilaterally, No wheezing, rhonchi, crackles Heart: Peripheral pulses intact bilaterally, Regular Rate and Rhythm. Abdomen: Soft, non-tender, non-distended, no palpable masses Musculoskeletal: Normal range of motion and strength, No cyanosis or edema, No visible joint swelling Skin: Skin is warm, dry, no rashes or lesions. Psychiatric: Cooperative, appropriate mood and affect, Awake and alert, not agitated Neuro: Cranial nerves II-XII grossly intact. Strength 3/5 LUE and LLE. S ensations decreased in bilateral hands and feet to light touch. Objective Labs 02/07/25 04:51 02/07/25 04:51 Labs: Laboratory Results - last 24 hr 02/06/25 04:45 WBC 8.7 D RBC 4.89 Hgb 15.1 Hct 44.2 MCV 90 MCH 30.9 MCHC 34.2 RDW Std Deviation 45.0 H Plt Count 200 Neut % (Auto) 52 Lymph % (Auto) 35 [place] % (Auto) 11 Eos % (Auto) 2 Baso % (Auto) 1 Neut # (Auto) 4.6 Lymph # (Auto) 3.0 [place] # (Auto) 0.9 H Eos # (Auto) 0.2 Baso # (Auto) 0.1 Immature Gran # (Auto) 0.02 H Absolute Nucleated RBC 0.00 Immature Gran % 0 Nucleated RBC % 0 Sodium 140 Potassium 4.2 Chloride 101 Carbon Dioxide 28.6 Anion Gap 10 BUN 9 Creatinine 0.8 Estim Creat Clear Calc 96.3 eGFR > 60 BUN/Creatinine Ratio 11 L Glucose [address] Glu mg/dL 157 H Hemoglobin A1c 7.1 H Calculated Osmolality 281 Calcium 9.1 Corrected Calcium 9.1 Phosphorus 4.6 Magnesium 1.9 Total Bilirubin 0.7 AST 12 ALT 24 Alkaline Phosphatase 68 Total Protein 6.7 Albumin 4.6 Globulin 2.1 L Albumin/Globulin Ratio 2.2 ABG Interpretation ABG results: 02/04/25 14:52 VBG pH 7.41 VBG pCO2 47 VBG pO2 31 VBG Base Excess 4 H Quality Measures Quality Measures none Advance care planning discussed with:: patient Assessment & Plan Assessment Current Active Medications: Generic Name Dose Route Start Last Admin Trade Name Freq PRN Reason Stop Dose Admin Acetaminophen 650 mg 02/05/25 13:54 Acetaminophen 325 Mg Tablet PO 03/07/25 13:53 Q6H PRN Fever >101.5 Acetaminophen 650 mg 02/05/25 13:54 02/06/25 12:21 Acetaminophen 325 Mg Tablet PO 03/07/25 13:53 650 mg Q6H PRN Administration PAIN SCALE 1-3 (mild Atorvastatin Calcium 40 mg 02/05/25 21:00 02/05/25 20:40 Atorvastatin Calcium 20 Mg Tablet PO 03/07/25 20:59 40 mg HS JENNIFER Administration Clonazepam 0.5 mg 02/05/25 21:00 02/06/25 08:21 Clonazepam 0.5 Mg Tablet PO 02/10/25 20:59 0.5 mg BID JENNIFER Administration Clopidogrel Bisulfate 75 mg 02/06/25 09:00 02/06/25 08:21 Clopidogrel Bisulfate 75 Mg Tablet PO 03/08/25 08:59 75 mg QDAY JENNIFER Administration Dextrose 25 ml 02/05/25 15:39 Dextrose 50%-Water Inj 50 Ml Syringe IV 03/07/25 15:38 Q15MIN PRN BG 50-70 responsive npo pt Dextrose 50 ml 02/05/25 15:39 Dextrose 50%-Water Inj 50 Ml Syringe IV 03/07/25 15:38 Q15MIN PRN BG <50 OR BG <70 & pt unresponsive Glucagon 1 mg 02/05/25 15:39 Glucagon Inj 1 Mg Vial IM Q15MIN PRN BG <70, and no IV access Insulin Human Lispro 0 unit 02/05/25 17:00 02/06/25 11:23 Insulin Lispro (Admelog) 1 Unit/0.01 Ml Unit SC 03/07/25 16:59 Not Given ACHS JENNIFER Protocol Ondansetron HCl 4 mg 02/05/25 13:54 Ondansetron Inj 2 Mg/Ml Inj 2 Ml IVP 03/07/25 13:53 Q6H PRN NAUSEA OR VOMITING Protocol Risperidone 2 mg 02/05/25 21:00 02/05/25 20:40 Risperidone 1 Mg Tablet PO 03/07/25 20:59 2 mg HS JENNIFER Administration Plan Mr. Lawrence, Ag, 69 y/o M with PMH of prior hx of stroke, schizophrenia, HTN, DM, bipolar disorder, presented to the ED on 02/04/2025, due to progressive numbness involving both hands and feet for last 5 days. Patient was admitted for observation of his generalized weakness as well as assessment by physical therapy to determine his current functional status and evaluate his ability to ambulate safely and independently. #Generalized Weakness #Hx of prior stroke, with residual Left arm and leg weakness -Progressive numbness involving both hands and feet for last 5 days. -History of prior stroke leading to chronic left arm and leg weakness and numbness -CXR (02/04/2025): No active disease -Head CT (02/04/2025): Negative for acute hemorrhage, mass effect or midline shift -Brain MRI (02/05/2025): Negative for acute hemorrhage mass effect or midline shift, No acute infarct, Moderate chronic microvascular white matter change -Neurology, Dr. Clayton, recommended admission for observation of his generalized weakness as well as assessment by physical therapy to determine his current functional status and evaluate his ability to ambulate safely and independently. Plan: -Consulted Neurology, Dr. Clayton, appreciate recommendations -Referral, physical therapy ?Plavix p.o. 75 mg daily -Follow up daily labs. #Hypertension Patient on amlodipine p.o. 5 mg nightly and lisinopril p.o. 20 mg daily at home, Will add antihypertensive meds to inpatient management if patient should develop hypertension. BP 127/85 this morning. #DM -Hba1c 7.1 -on SSI - Ordered vitamin D, B12 level #HLD Atorvastatin p.o. 40mg at bedtime #Hx of Schizophrenia #Hx of bipolar disorder Included among confirmed home meds are quetiapine 25 mg nightly, mirtazapine 30 mg at bedtime, buspirone 5 mg twice daily and paroxetine 20 mg every morning. Resumed the following while inpatient: - Clonazepam 0.5 mg p.o. twice daily - Risperidone 2 mg p.o. at bedtime Disposition: Med surg, will discharge to SNF after repeat PT eval Diet: Cardiac diet GI prophylaxis: Not indicated DVT prophylaxis: SCD Code:FULL This case was discussed with my attending physician, Dr. Davidson, and senior resident, Dr Alvarado. Even though this this note was carefully revised there may still be minor errors in sales expert home theater due to voice recognition software. Sandy Whitehead, PGY I Attending Provider Attestation/Addendum I have seen and examined the patient. I was physically present for the villatoro portions of the services provided including history, physical exam, diagnosis, treatment plans and orders. I agree with assessment and plan of care as documented by residents. Even though this this note was carefully revised there may still be minor errors in sales expert home theater due to voice recognition software. Heike Davidson MD
[2025-02-06 16:00] VITALS: BP 120/69; PULSE 80; RESP 16; TEMP 36.8; O2SAT 97
[2025-02-06] MEDS: INSULIN LISPRO (AdmeLOG) 1 UNIT/0.01 ML UNIT SC ×2 (17:07→21:57)
[2025-02-06 20:00] VITALS: BP 118/76; PULSE 83; RESP 18; TEMP 36.8; O2SAT 97
[2025-02-06] MEDS: ATORVASTATIN CALCIUM 20 MG TABLET 40 MG PO (21:58)
--- NOTE | 2025-02-06 23:53 | PD.VPROG1 ---
Telemedicine visit statement This visit was conducted with the use of interactive audio and video telecommunications system that permits real time communication between the patient and the provider. Patient's verbal consent for virtual visit was obtained on 02/06/25 at 2353. Documentation for date of: 02/06/25 Virtual exam Vital Signs Temp Pulse Resp BP Pulse Ox O2 Del Method 98.3 F 83 18 118/76 97 Room Air 02/06/25 20:00 02/06/25 20:00 02/06/25 20:00 02/06/25 20:00 02/06/25 20:00 02/06/25 20:00 Objective Labs 02/06/25 04:45 02/06/25 04:45 Labs: Laboratory Results - last 24 hr 02/06/25 04:45 WBC 8.7 D RBC 4.89 Hgb 15.1 Hct 44.2 MCV 90 MCH 30.9 MCHC 34.2 RDW Std Deviation 45.0 H Plt Count 200 Neut % (Auto) 52 Lymph % (Auto) 35 [place] % (Auto) 11 Eos % (Auto) 2 Baso % (Auto) 1 Neut # (Auto) 4.6 Lymph # (Auto) 3.0 [place] # (Auto) 0.9 H Eos # (Auto) 0.2 Baso # (Auto) 0.1 Immature Gran # (Auto) 0.02 H Absolute Nucleated RBC 0.00 Immature Gran % 0 Nucleated RBC % 0 Sodium 140 Potassium 4.2 Chloride 101 Carbon Dioxide 28.6 Anion Gap 10 BUN 9 Creatinine 0.8 Estim Creat Clear Calc 96.3 eGFR > 60 BUN/Creatinine Ratio 11 L Glucose [address] Glu mg/dL 157 H Hemoglobin A1c 7.1 H Calculated Osmolality 281 Calcium 9.1 Corrected Calcium 9.1 Phosphorus 4.6 Magnesium 1.9 Total Bilirubin 0.7 AST 12 ALT 24 Alkaline Phosphatase 68 Total Protein 6.7 Albumin 4.6 Globulin 2.1 L Albumin/Globulin Ratio 2.2 ABG Interpretation ABG results: 02/04/25 14:52 VBG pH 7.41 VBG pCO2 47 VBG pO2 31 VBG Base Excess 4 H
[2025-02-07] VITALS: BP 128/77; PULSE 83; RESP 18; TEMP 36.8; O2SAT 95
[2025-02-07 04:00] VITALS: BP 113/70; PULSE 77; RESP 18; TEMP 36.4; O2SAT 95
[2025-02-07 05:47] LABS: Basophils # (Auto) 0.1 Thou/mm3 (0.0-0.2); Basophils % (Auto) 1 % (0-2.5); Eosinophils # (Auto) 0.2 Thou/mm3 (0.0-0.5); Eosinophils % (Auto) 2 % (0-10); Hematocrit 41.4 % (41.0-53.0); Hemoglobin 14.0 g/dL (13.5-16.0); Immature Granulocytes Auto 0.03 Thou/mm3 (0.00-0.00); Lymphocytes # (Auto) 2.5 Thou/mm3 (1.0-4.8); Lymphocytes % (Auto) 36 % (10-50); Mean Corpuscular HGB Conc 33.8 g/dl (31.0-37.0); Mean Corpuscular Hemoglobin 30.2 pg (25.0-35.0); Mean Corpuscular Volume 89 fL (80-100); Monocytes # (Auto) 0.8 Thou/mm3 (0.0-0.8); Monocytes % (Auto) 11 % (0-12); Neutrophils # (Auto) 3.6 Thou/mm3 (1.8-7.7); Neutrophils % (Auto) 50 % (37-80); Nucleated Red Blood Cell # 0.00 Thou/mm3 (0.00-0.00); Nucleated Red Blood Cell % 0 /100 WBC (0); Platelet Count 247 Thou/mm3 (140-440); RDW Standard Deviation 43.8 fL (35.1-43.9); Red Blood Count 4.63 Miln/mm3 (4.50-5.90); White Blood Count 7.1 Thou/mm3 (3.8-10.6)
[2025-02-07 06:11] LABS: Alanine Aminotransferase 26 U/L (10-49); Albumin, Serum 4.5 gm/dL (3.4-4.8); Albumin/Globulin Ratio 2.1 (1.2-2.2); Alkaline Phosphatase 68 U/L (46-116); Anion Gap 11 (7-16); Aspartate Amino Transferase 15 U/L (0-34); BUN/Creatinine Ratio 11 Ratio (12-20); Bilirubin,Total 0.5 mg/dL (0.3-1.2); Blood Urea Nitrogen 8 mg/dL (9-23); Calcium 9.1 mg/dL (8.3-10.6); Calcium (Corrected) 9.1 mg/dL (8.5-10.1); Carbon Dioxide 28.5 mMol/L (20.0-31.0); Chloride 102 mMol/L (98-107); Creatinine (Component) 0.7 mg/dL (0.6-1.3); Estimated Creatinine Clearance 110.1 mL/min (>60); Globulin 2.1 gm/dL (2.3-3.5); Glucose 151 mg/dL (74-106); Magnesium 1.9 mg/dL (1.6-2.6); Osmolality,Calculated 282 (275-295); Phosphorous 4.3 mg/dL (2.4-5.1); Potassium 4.2 mMol/L (3.4-5.1); Sodium 141 mMol/L (136-145); Total Protein 6.6 gm/dL (5.7-8.2); eGFR > 60 See Note
[2025-02-07 08:00] VITALS: BP 126/82; PULSE 72; RESP 18; TEMP 36.4; O2SAT 94
--- NOTE | 2025-02-07 09:07 | PC.SS ---
Addendum entered by Brittani Reaves 02/07/25 11:23: SS provided verbal options for dc to home with HH or SNF. Dtr is aware if SNF do not accept they can pay privately for SNF. Dtr and pt explained they are not able to afford to pay privately at SNF. SS also explained pt can d/c home with HH. Dtr states she is patient's IHSS caregiver. SS provided dtr with the [facility] phone# and [employer] phone# for transportation. SS received call from Amanda from [facility] who explained they are able to accept pt under retirement authorization and they will obtain insurance authorization at the SNF (due to not being skilled authorization). Amanda from [facility] states she can accept pt today but is requiring PASRR evaluation. SS met with bedside nurse, Mitra who explained pt is on Clonazepam for seizure and anxiety and Resiperidone for schizophrenia. Per nurse, pt has schizophrenia and bipolar disorder. SS met with pt who is aware of SNF placement and he has agreed to [facility] since they are accepting at this time. Dtr is also agreeable to [facility]. SS spoke to PASRR slate cutter operator who is aware pt is ready for d/c today and he will review and close assessment today. Addendum entered by Brittani Reaves 02/07/25 09:55: SS spoke to Erik banerjee by phone who is aware pt is meeting observation status. Dtr explained she is unable to care for pt at home and was informed from different SS, SNF possibly can accept pt under his secondary health insurance. SS has contacted admissions from the local 5 SNF who are aware pt is observation status and they are following up with their directors of nursing for acceptance. Original Note: Follow up note: PT evaluation pending. Pt is currently observation status.
[2025-02-07] MEDS: CLOPIDOGREL BISULFATE 75 MG TABLET PO (09:28)
--- NOTE | 2025-02-07 10:48 | ESDS_ITS ---
<Statement entered by Elizabeth Saavedra DO - 02/08/25 08:32> I, Elizabeth Saavedra DO, attest that I was physically present for the villatoro portions of the service and evaluated the patient with the resident and I reviewed and discussed the case with the resident and agree with the resident's findings and plans of care as documented above <Statement entered by Mike Ryder MD - 02/07/25 18:46> Patient was seen and examined by me personally. I have reviewed the below documentation by the team resident and agree with its findings. Discharge plan was discussed with the attending, Dr. Elizabeth Osborn MD Internal Medicine, PGY-2 Planned Discharge Date 02/07/25 DS: Providers Provider Date of admission: 02/05/25 13:56 Primary care physician: Rohini Driver Admitting Provider: Heike Davidson MD Attending Provider on Admission: Elizabeth Saavedra DO Consults: 02/04/25 14:39 PT [Referral Physical Therapy] Stat Comment: Physician Instructions: 02/05/25 15:37 Consult to Neurology / Tele-Neurology Routine Comment: Generalized weakness Consulting Provider: Cricket Clayton 02/05/25 18:18 [facility] Referral - Knowledge Deficit Routine Comment: Positive screening for knowledge deficit needs. Attending Provider on DC: Benja Gates DO Discharging Provider: Benja Gates DO DS: Diagnosis Problem List Completed Was Problem List Reviewed/Reconciled?: Yes Hospital Course Hospital Course Hospital course: Summary: Ag Khan, 69 y/o M with PMH of prior hx of stroke, sc hizophrenia, HTN, DM, bipolar disorder, presented ot the ED on 02/04/2025, due to progressive generalized weakness and numbness involving both hands and feet for last [address] head and MRI brain was negative. Neurology recommended admission for observation. On 02/07, patient's labs and vitals were stable and was discharged. ED course: Vitals: 98.7 F, LA 82, RR 18, BP 146/83, 95% O2 saturation on room air. Labs: WBC 5.9, Hgb 14.4, sodium 138, potassium 4.0, creatinine 0.7, glucose 182 CXR (02/04/2025): No active disease Head CT (02/04/2025): Negative for acute hemorrhage, mass effect or midline shift Brain MRI (02/05/2025): Negative for acute hemorrhage mass effect or midline shift, No acute infarct, Moderate chronic microvascular white matter change Hospital Course: Initial evaluation in the ED included CT head and MRI brain both of which were negative for acute findings, effectively ruling out a new stroke. Neurology was consulted and recommended admission for observation of his generalized weakness as well as assessment by physical therapy to determine his current functional status and evaluate his ability to ambulate safely and independently. Upon evaluation, Physical Therapy recommended outpatient physical therapy services after discharge. Later, patient wished to be discharged to SNF. On 02/07, patient's labs and vitals were stable and was discharged. #Generalized Weakness #Hx of prior stroke, with residual Left arm and leg weakness #Hypertension #DM #HLD #Hx of Schizophrenia #Hx of bipolar disorder Instructions: Please continue taking all medications as preciously prescribed. Please follow up with your primary doctor in 7-10 days. Please continue to work with physical therapy. Return to ED if you develop new or worsening symptoms. Assessment and plan discussed with my attending physician Dr. Saavedra and Dr. Ryder (PGY-2) Dr. Gates (PGY-1) - Internal medicine resident Status at Discharge Overall status at discharge: patient is progressing back to baseline Time Spent with Patient Time attestation: Total time spent providing and/or coordinating discharge services: Time spent: Greater than 30 minutes Exam Vital Signs Temp Pulse Resp BP Pulse Ox O2 Del Method 97.6 F 72 18 126/82 94 L Room Air 02/07/25 08:00 02/07/25 08:00 02/07/25 08:00 02/07/25 08:00 02/07/25 08:00 02/07/25 08:00 Narrative Exam General: Well nourished, AAO x3 Eye: Normal conjunctiva, no scleral icterus HENT: Normocephalic, atraumatic, hearing intact to conversation at normal volume, moist oral mucosa Neck: Supple, non-tender, no JVD, no lymphadenopathy Lungs: Non-labored respirations, symmetric chest rise, Clear to auscultate bilaterally, No wheezing, rhonchi, crackles Heart: Peripheral pulses intact bilaterally, Regular Rate and Rhythm. Abdomen: Soft, non-tender, non-distended, no palpable masses Musculoskeletal: Normal range of motion and strength, No cyanosis or edema, No visible joint swelling Skin: Skin is warm, dry, no rashes or lesions. Psychiatric: Cooperative, appropriate mood and affect, Awake and alert, not agitated Neuro: Cranial nerves II-XII grossly intact. Strength 3/5 LUE and LLE. Sensations decreased in bilateral hands and feet to light touch. Discharge Plan Problem List Was Problem List Reviewed/Reconciled?: Yes Plan Patient Disposition: Xfer Skilled Nsg Fac (SNF) Patient condition on transfer: Stable Care Plan Goals: Please continue taking all medications as preciously prescribed. Please follow up with your primary doctor in 7-10 days. Please continue to work with physical therapy. Return to ED if you develop new or worsening symptoms. Prescriptions/Referrals Prescriptions/Med Rec: Continued ibuprofen 800 MG tablet 800 mg PO Q8HR PRN (Reason: PAIN) Qty: 0 risperidone [Risperdal] 2 MG tablet 6 mg PO .QHS Qty: 0 paroxetine HCl [Paxil] 20 MG tablet 20 mg PO QAM Qty: 0 mirtazapine [Remeron] 30 MG tablet 30 mg PO HS Qty: 0 lorazepam 1 MG tablet 1 mg PO QDAY PRN (Reason: ANXIETY) Qty: 0 trazodone 100 mg Tablet 100 mg PO HS lorazepam [Ativan] 1 mg tablet 1 mg PO BID PRN (Reason: anxiety) Qty: 20 0RF lorazepam [Ativan] 1 mg tablet 1 mg PO BID Qty: 2 0RF amlodipine 5 mg tablet 5 mg PO .QHS quetiapine 25 mg tablet 25 mg PO .QHS Patient Comments: take 2 tablets by mouth at bedtime clopidogrel 75 mg Tablet 75 mg PO QDAY 30 Days Qty: 30 1RF oxybutynin chloride 5 mg tablet 5 mg PO QDAY lisinopril 20 mg tablet 20 mg PO QDAY clonazepam [Klonopin] 0.5 mg tablet 0.5 mg PO BID buspirone 5 mg tablet 5 mg PO BID atorvastatin 80 mg tablet 40 mg PO HS Referrals: Rohini Driver [Primary Care Provider] Patient/Caregiver Discharge Instructions Discharge Activity: as per physical therapy and activity as tolerated Print Language: Tamazight Stand Alone Forms: [employer]za Award Info., Patient Portal Info Letter Discharge Order Discharge Orders: Discharge (Routine); Ordered 02/07/25 Ordered By: Benjy Alvarado Quality Discharge Quality Measures VTE prophylaxis
--- NOTE | 2025-02-07 11:36 | PC.SS ---
Addendum entered by Brittani Reaves 02/07/25 14:42: SS has called [facility] and left voicemail with SS contact information and still waiting for [facility] evaluation to be closed for hospital d/c today. Addendum entered by Brittani Reaves 02/07/25 13:44: SS has communicated with Yonas from [facility] who explained he has requested to be the casing tester on patient's case. Yonas from [facility] is aware assessment has not been closed at this time. Original Note: SS was informed by bedside nurse pt has not had bowel movement. SS attempted to setup transportation with [employer] but was unsuccessful. Per Veronica [employer] lead generation representative, who explained their system is down and are unable to setup transportation through phone. SS has called [facility] and requested transport time of 6pm to [facility].
[2025-02-07] MEDS: POLYETHYLENE GLYCOL 17 GM PACKET 34 GM PO (11:41)
[2025-02-07] MEDS: SENNA/DOCUSATE SOD 1 TAB TABLET 2 TAB PO (11:41)
[2025-02-07 12:00] VITALS: BP 128/82; PULSE 86; RESP 18; TEMP 36.3; O2SAT 99
--- NOTE | 2025-02-07 15:40 | PC.SS ---
SS has sent PAS[facility] assessment to [facility] using [employer]. SS has received call from [email or web address] and transport is set to [facility] for 6pm. Dtr is aware. Amanda from [facility] is aware. Pt is aware. Bedside nurse is aware.
[2025-02-07 16:00] VITALS: BP 153/82; PULSE 83; RESP 18; TEMP 36.6; O2SAT 96
--- NOTE | 2025-02-07 20:01 | ESPR_ITS ---
Documentation for date of: 02/07/25 Exam Vital Signs Temp Pulse Resp BP Pulse Ox O2 Del Method 97.8 F 83 18 153/82 H 96 Room Air 02/07/25 16:00 02/07/25 16:00 02/07/25 16:00 02/07/25 16:00 02/07/25 16:00 02/07/25 16:00 Narrative Exam General: Well nourished, AAO x3 Eye: Normal conjunctiva, no scleral icterus HENT: Normocephalic, atraumatic, hearing intact to conversation at normal volume, moist oral mucosa Neck: Supple, non-tender, no JVD, no lymphadenopathy Lungs: Non-labored respirations, symmetric chest rise, Clear to auscultate bilaterally, No wheezing, rhonchi, crackles Heart: Peripheral pulses intact bilaterally, Regular Rate and Rhythm. Abdomen: Soft, non-tender, non-distended, no palpable masses Musculoskeletal: Normal range of motion and strength, No cyanosis or edema, No visible joint swelling Skin: Skin is warm, dry, no rashes or lesions. Psychiatric: Cooperative, appropriate mood and affect, Awake and alert, not agitated Neuro: Cranial nerves II-XII grossly intact. Strength 3/5 LUE and LLE. S ensations decreased in bilateral hands and feet to light touch. Objective Labs 02/07/25 04:51 02/07/25 04:51 Labs: Laboratory Results - last 24 hr 02/07/25 04:51 WBC 7.1 RBC 4.63 Hgb 14.0 Hct 41.4 MCV 89 MCH 30.2 MCHC 33.8 RDW Std Deviation 43.8 Plt Count 247 D Neut % (Auto) 50 Lymph % (Auto) 36 [place] % (Auto) 11 Eos % (Auto) 2 Baso % (Auto) 1 Neut # (Auto) 3.6 Lymph # (Auto) 2.5 [place] # (Auto) 0.8 Eos # (Auto) 0.2 Baso # (Auto) 0.1 Immature Gran # (Auto) 0.03 H Absolute Nucleated RBC 0.00 Immature Gran % 0 Nucleated RBC % 0 Sodium 141 Potassium 4.2 Chloride 102 Carbon Dioxide 28.5 Anion Gap 11 BUN 8 L Creatinine 0.7 Estim Creat Clear Calc 110.1 eGFR > 60 BUN/Creatinine Ratio 11 L Glucose 151 H Calculated Osmolality 282 Calcium 9.1 Corrected Calcium 9.1 Phosphorus 4.3 Magnesium 1.9 Total Bilirubin 0.5 AST 15 ALT 26 Alkaline Phosphatase 68 Total Protein 6.6 Albumin 4.5 Globulin 2.1 L Albumin/Globulin Ratio 2.1 ABG Interpretation ABG results: 02/04/25 14:52 VBG pH 7.41 VBG pCO2 47 VBG pO2 31 VBG Base Excess 4 H Quality Measures Quality Measures VTE prophylaxis Advance care planning discussed with:: patient Assessment & Plan Plan Muscle weakness of lower extremity: Recommendations: Improved, MRI brain did not show any acute infarction. Patient is stable from neurologist point for discharge home tomorrow. Advised him to keep using the walker. Recommend outpatient vitamin D level, B12 and A1c History of CVA, with residual hemiparesis: Recommendations: These are chronic residual weaknesses, recommend outpatient physical therapy at facility Reassurance given to the patient. Thank you for the consult. Neurology will continue to follow the case outpatient Plan of care discussed with attending Neurologist Laura Cope M.D. PGY3 Disclaimer: Minor errors in communication center operator may be present as this note was dictated using voice recognition software.
== END 2025-02-07 18:11 | disposition skilled nursing facility (03) ==
LOC: SERX 02-05 07:26 → SERHOLD 02-05 14:23 → S3SX 02-05 17:11
PROVIDERS: Family Medicine; Admitting Provider Student in an Organized Health Care Education/Training Program; Emergency Provider Emergency Medicine; PCP Physician Assistant; Visit Provider Internal Medicine
DX: R53.1 Weakness (principal); I69.354 Hemiplegia and hemiparesis following cerebral infarction affecting left non-dominant side; E11.9 Type 2 diabetes mellitus without complications; E78.5 Hyperlipidemia, unspecified; F20.9 Schizophrenia, unspecified; F31.9 Bipolar disorder, unspecified; I10 Essential (primary) hypertension
CPT/HCPCS: 36415; 70450; 70553; 71045; 80053; 81001; 82010; 82550; 82803; 83036; 83605; 83735; 84100; 85025; 93005; 99283; A9577; G0378; J1815; A9270